=== PATIENT | male | born 1945 | race Caucasian/White ===

== ENCOUNTER 2018-03-28 08:23 | Emergency (ER) | payer MEDICARE, OTHER, SELFPAY ==
[2018-03-28 08:24] VITALS: BP 138/95; PULSE 116; RESP 15; TEMP 36.7; O2SAT 99; BMI 28.8
[2018-03-28 08:31] LABS: Bedside Glucose 392 mg/dL (70-110)
--- NOTE | 2018-03-28 08:35 | EKG12_ITS ---
Test Reason : CP Blood Pressure : / mmHG Vent. Rate : 116 BPM Atrial Rate : 116 BPM P-R Int : 162 ms QRS Dur : 086 ms QT Int : 342 ms P-R-T Axes : 074 -31 063 degrees QTc Int : 475 ms Sinus tachycardia with Premature atrial complexes Left axis deviation Abnormal ECG Confirmed by MYA GOOD, AIRAM ([id number]), production editor OMAR PAUL ([id number]) on 03/30/2018 9:24:47 AM Referred By: Confirmed By:AIRAM ROQUE MD
--- NOTE | 2018-03-28 08:35 | RAD_ITS ---
STUDY: X-RAY CHEST REASON FOR EXAM: Male, 72 years old. Several day history of chest pain. TECHNIQUE: Single AP portable view of the chest. COMPARISON: Comparison is made with prior study dated July 26, 2014. FINDINGS: EKG electrodes are seen. Hyperinflation. Scattered calcified granulomas. No acute abnormality is seen. There is no demonstrated pleural abnormality. Normal size heart. Calcified hilar lymph nodes. Normal visualized pulmonary arteries. Normal visualized aortic arch and descending thoracic aorta. There are mild degenerative changes of the visualized thoracic spine. Healed right rib fractures. There is no demonstrated abnormality of the visualized soft tissue structures of the upper abdomen. RAD/Chest 1 View (Portable) IMPRESSION: Hyperinflation. No acute abnormality is seen. Electronically Signed: Andres Angela MD at 8:51 EDT Tel [phone], Service support ,
[2018-03-28] MEDS: 0.9% Normal Saline 1,000 ML 150 ML IV (08:38)
[2018-03-28 08:41] LABS: Absolute Lymphocyte Count 0.75 X10^3/ul (0.83-4.51); Absolute Neutrophil Count 8.6 X10^3/uL (2.0-7.7); Basophil# 0.04 X10^3/uL; Basophil% 0.4 % (0-1); Eosinophil# 0.08 X10^3/uL; Eosinophils% 0.8 % (0-5); Hematocrit 41.4 % (40-54); Hemoglobin 13.2 g/dl (13.0-16.5); Lymphocyte # 0.75 X10^3/ul (4.0); Lymphocyte % 7.6 % (19-41); Mean Corp Hgb Conc 31.9 g/gl (32-36); Mean Corpuscular Hgb 29.8 pg (27.0-32.0); Mean Corpuscular Volume 93.5 fL (80-94); Monocyte# 0.46 X10^3/uL; Monocyte% 4.6 % (0-10); Neutrophil # 8.57 X10^3/uL (2.7-7.7); Neutrophil % 86.5 % (47-70); Platelet Count 187 K/mm3 (150-450); RBC Distribution Width CV 13.2 % (11.6-14.6); Red Blood Count 4.43 M/mm3 (4.6-6.2); White Blood Count 9.9 K/mm3 (4.4-11.0)
[2018-03-28 08:42] LABS: POSITIVE COUNT NO; POSITIVE DIFFERENTIAL NO; POSITIVE MORPHOLOGY NO
[2018-03-28 08:52] VITALS: O2SAT 100
--- NOTE | 2018-03-28 08:54 | ED.DCSUM_ITS ---
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 He reports he has chest pain that awaken him from sleep at 6:00 this morning. He had last approximately 2 hours. It was a substernal pressure without radiation. 10 out of 10 at worst and is pain-free currently. It was worsened by laying on his chest and relieved by nothing including 2 doses of nitroglycerin. Vomiting he reports that it was associated with nausea, but no vomiting. Also made him diaphoretic. No shortness of breath. Physical Examination: Vitals: Stable. Afebrile. General: Well-nourished and well-developed. Head: Normocephalic atraumatic. Neck: Supple, no lymphadenopathy. No JVD. Nontender. Cardiovascular: Tachycardic regular rhythm. No murmurs. Respiratory: No respiratory distress. Clear to auscultation bilaterally. Abdominal: Soft, nontender, nondistended, normal bowel sounds. No guarding, rebound, or peritoneal signs. Back: Nontender. Extremities: Nontender, no edema. Skin: Normal color, no rash. Neurologic: Alert and oriented ?3. Cranial nerves II through XII are intact. Normal strength and sensation. Psych: Normal affect. Test Results: EKG is sinus tach at [address]pecific [address] changes. The rate is essentially the only change from July 2014. CBC is marked for segment neutrophils 87 lymphocytes 8. Chem-7 is more for BUN 21, creatinine 1.3 , glucose 377. Troponin is negative. TSH is normal. Chest x-ray shows chronic changes. Emergency Department Course and Treatment: Patient was given aspirin p.o. Is given dose of labetalol IV. He is resting comfortably and has been pain-free while here. Patient has an insulin pump and has bolused himself and has treated his sugar appropriately. He does not want us to address this. Treatment Plan: Patient feels well and would like to go home. He was discussed with Dr. Rai who will see him in 2 days for repeat exam. I did discuss the patient the need for a repeat EKG and 3 hour troponin. He does not want to do this. He does report that he has had this multiple times over the past 2 weeks. This is only occurring when he is sleeping. I discussed I discussed with him the possibility of reflux. He will be placed on Prilosec. Return to the emergency department for any worsening symptoms. Disposition: To home in improved and stable condition. Impression: 1. Atypical chest pain. 2. GIOVANNI score 4. This note was generated with [employer] dictation software. It may contain incorrect words, spelling, and punctuation that were not noted in review of the chart prior to signing ED Disposition - Plan for ED Patient: Chief Complaint: Chest Pain Instructions: ED Chest Pain Atypical Unkn Cause Prescriptions: Omeprazole [Prilosec] 20 mg PO DAILY #30 capsule Referrals: Sriram Rai MD [STAFF PHYSICIAN] - Keep Neida appointment
[2018-03-28 09:04] LABS: Anion Gap 13 (5-15); BUN 21 mg/dL (7-18); BUN/Creat Ratio 15.2 RATIO (10-20); Calcium,Total 9.1 mg/dL (8.5-10.1); Chloride 99 mmol/L (98-107); Creatinine, Serum 1.38 mg/dL (0.70-1.30); EST Glomerular Filtration Rate 54 mL/min (>60); Est Glom Filt Rate - Afr Amer 65 mL/min (>60); Estimated Creatinine Clearance 55.49 ml/min; Glucose 377 mg/dL (74-106); Sodium Level 138 mmol/L (136-145); Thyroid Stim Hormone (TSH) 1.26 uIU/mL (0.358-3.74)
[2018-03-28 09:50] VITALS: BP 141/81; PULSE 75; RESP 18; O2SAT 100
[2018-03-28 10:44] VITALS: BP 120/69; PULSE 73; RESP 21; O2SAT 99
[2018-03-28 10:56] VITALS: BP 120/69; PULSE 72; RESP 18; O2SAT 99
== END 2018-03-28 10:56 | disposition home or self-care (01) ==
PROVIDERS: Emergency Provider Emergency Medicine; Family Provider Internal Medicine; PCP Internal Medicine
DX: R07.89 Other chest pain (principal); R11.0 Nausea; E11.9 Type 2 diabetes mellitus without complications; I10 Essential (primary) hypertension; E78.00 Pure hypercholesterolemia, unspecified; I48.91 Unspecified atrial fibrillation; Z86.73 Personal history of transient ischemic attack (TIA), and cerebral infarction without residual deficits; Z95.5 Presence of coronary angioplasty implant and graft; G60.0 Hereditary motor and sensory neuropathy
CPT/HCPCS: 71045; 80048; 82962; 84443; 84484; 85025; 93005; 96361; 96374; 99285; J7030; A4216

== ENCOUNTER 2018-05-31 16:49 | Emergency (ER) | payer MEDICARE, OTHER, SELFPAY ==
[2018-05-31 16:52] VITALS: BP 153/68; PULSE 112; RESP 16; TEMP 36.9; O2SAT 98; BMI 29.0
--- NOTE | 2018-05-31 17:21 | US_ITS ---
STUDY: VENOUS DOPPLER ULTRASOUND - RIGHT LOWER EXTREMITY REASON FOR EXAM: Male, 73 years old. Right lower leg and ankle swelling. TECHNIQUE: Ultrasound evaluation of the deep vein system to include luke-scale imaging and compression was performed. Luke-scale imaging and Doppler sonographic evaluation, including duplex spectral analysis and qualitative color flow sonography, was performed. COMPARISON: None. FINDINGS: Common Femoral Vein: Normal compression, spontaneity and augmentation. Normal color Doppler. Common Femoral Vein/Greater Saphenous Junction: Normal compression. Deep Femoral Vein: Normal compression. Femoral Proximal: Normal compression. Femoral Middle: Normal compression, spontaneity and augmentation. Normal color Doppler. Femoral Distal: Normal compression. Popliteal Vein: Normal compression, spontaneity and augmentation. Normal color Doppler. Posterior Tibial Vein: Normal compression. Peroneal Vein: Normal compression. There is no demonstrated deep venous thrombosis. US/Venous Duplex Imag/Limited/Uni IMPRESSION: No demonstrated DVT of the right lower extremity. Electronically Signed: Aaron Allen MD at 18:18 EST , Service support ,
[2018-05-31 17:40] LABS: Absolute Lymphocyte Count 1.06 X10^3/ul (0.83-4.51); Basophil# 0.05 X10^3/uL; Basophil% 1.1 % (0-1); Eosinophil# 0.06 X10^3/uL; Eosinophils% 1.3 % (0-5); Hematocrit 40.9 % (40-54); Hemoglobin 13.1 g/dl (13.0-16.5); Lymphocyte # 1.06 X10^3/ul (4.0); Lymphocyte % 23.2 % (19-41); Mean Corpuscular Hgb 29.7 pg (27.0-32.0); Mean Corpuscular Volume 92.7 fL (80-94); Mean Platelet Vol. 9.9 fl (6.2-12.0); Monocyte% 8.8 % (0-10); Neutrophil % 65.6 % (47-70); Platelet Count 206 K/mm3 (150-450); RBC Distribution Width SD 44.4 fl (35.1-43.9); Red Blood Count 4.41 M/mm3 (4.6-6.2); White Blood Count 4.6 K/mm3 (4.4-11.0)
[2018-05-31 17:46] LABS: POSITIVE COUNT NO; POSITIVE DIFFERENTIAL NO; POSITIVE MORPHOLOGY NO
--- NOTE | 2018-05-31 17:49 | ED.VISSUMM ---
- ER Visit Summary Date of Service: 05/31/18 Chief Complaint: Leg swelling History of Present Illness: The patient is a 73 M who presents the emergency room for the evaluation of right leg swelling. He was sent by his tray checker out of concern for right leg DVT. The patient has had problems with swelling of the right leg in the past. He states however this is much higher than it has been. He states that it is not a blood clot he most likely is having a flareup of his Charcot foot. The patient celebrated Thanksgiving on but states he really did not eat very much. He states that on Wednesday he noticed the swelling. He typically wears compression stockings at work. He worked the weekend. He notes discomfort in the ortez. He has not been in the [employer] boot recently. No recent surgeries or trauma or travel. No prior history of DVT. The patient denies any known kidney problems. He notes his blood sugars have been very high (in the 400s). Physical Examination: Afebrile vital signs are stable Gen: Well-nourished well-developed Head: Normocephalic atraumatic Eyes: Perrl EOMI ENT: TMs clear no rhinorrhea moist mucous membranes Neck: Supple no lymphadenopathy no JVD nontender CVS: Regular rate rhythm no murmurs normal S1-S2 Respiratory: No distress clear to auscultation bilaterally chest nontender Abdomen: Soft nontender nondistended normal bowel sounds no masses Back: Nontender Extremity: Right leg is swollen to the level of the knee. It is more swollen than the left however I can still see the sock line on the patient's left leg. I do not appreciate any cords. There is no erythema. The foot itself is not necessarily significantly swollen. Skin: Normal color no rash Neuro: alert orientated ?3 CN II-XII intact normal strength sensation reflexes gait cerebellar Psych: Normal affect normal mood Test Results: Basic blood work is normal. Duplex ultrasound is negative. Emergency Department Course and Treatment: The patient has no evidence of DVT. He has normal renal function. I think this is most likely lymphedema. Based upon prior recurrences of leg swelling I did say over time this has resulted in damage to the venous system. We will place him on Lasix. I will encourage compression stockings. He should follow-up with his doctors. Impression: 1. Right leg swelling 2. Lymphedema This note was generated with [employer] dictation software. It may contain incorrect words, spelling, and punctuation that were not noted in review of the chart prior to signing ED Disposition - Plan for ED Patient: Disposition: Home or Assisted Living Chief Complaint: Lower Extremity Injury Instructions: ED Lymphedema Prescriptions: Furosemide [Lasix] 40 mg PO DAILY #5 tab Referrals: Ghislaine Marshall [STAFF PHYSICIAN] - 5-7 Days
[2018-05-31 17:55] LABS: AST(SGOT) 20 U/L (15-37); Alanine Aminotransfer ALT/SGPT 28 U/L (16-61); Albumin, Serum 3.4 g/dL (3.2-5.0); Alkaline Phosphatase 167 U/L (45-117); Anion Gap 5 (5-15); BUN 16 mg/dL (7-18); BUN/Creat Ratio 12.7 RATIO (10-20); Calcium,Total 8.6 mg/dL (8.5-10.1); Chloride 103 mmol/L (98-107); Creatinine, Serum 1.26 mg/dL (0.70-1.30); EST Glomerular Filtration Rate 60 mL/min (>60); Est Glom Filt Rate - Afr Amer 72 mL/min (>60); Estimated Creatinine Clearance 59.89 ml/min; Globulin 3.4 g/dL (2.2-4.2); Glucose 253 mg/dL (74-106); Potassium 3.7 mmol/L (3.5-5.1); Protein, Total 6.8 g/dL (6.4-8.2); Sodium Level 138 mmol/L (136-145)
--- NOTE | 2018-05-31 18:45 | RAD_ITS ---
STUDY: X-RAY - RIGHT FOOT CLINICAL: Male, 73 years old. Right foot pain and swelling, arthritis. TECHNIQUE: 3 view(s) of the foot. COMPARISON: None. FINDINGS: There is heterogeneous density and prominent, periarticular spurring at the talonavicular, naviculocuneiform, and 2-5 tarsometatarsal articulations, the latter more prominent laterally. There is small enthesophyte involving the posterior superior calcaneus at the site of insertion of the Achilles tendon. There is a plantar calcaneal spur. Normal visualized subtalar articulation, and borderline narrowing of the calcaneocuboid joint space. Normal first metatarsal. Periarticular cortical irregularity also seen at the bases of the 2-5 metatarsals. There is some deformity and subarticular sclerosis at the head of the third metacarpal Normal metatarsophalangeal joint of the great toe. Normal tibial and fibular sesamoid bones. There is degenerative arthrosis and valgus deviation of the interphalangeal joint of the great toe. Normal phalanges of the great toe. Normal second metatarsophalangeal joint. There are degenerative changes of varying degrees involving the third through fifth metatarsophalangeal joints. There is degenerative joint space narrowing of varying degrees at the interphalangeal joints of the lesser toes. Joint space narrowing most severe at the second proximal interphalangeal joint. There is deformity of the mid to distal second proximal phalanx that may reflect old healed fracture. Otherwise, normal phalanges of the lesser toes. Borderline anterior soft tissue swelling of the mid and forefoot. Small linear metal foreign body seen in the plantar soft tissues near the base of the third proximal phalanx. There is no demonstrated acute fracture. RAD/Foot min 3 Views IMPRESSION: 1. Multifocal degenerative changes of the right foot, as described, most severe at the metatarsal tarsal and 2-5 tarsometatarsal articulations. 2. Small linear metal foreign body in the plantar soft tissues at the base of the third toe. 3. No demonstrated acute fracture. Electronically Signed: Aaron Allen MD at 19:26 EST , Service support ,
[2018-05-31 19:45] VITALS: BP 172/85; PULSE 107; RESP 18; O2SAT 97
--- OUTSIDE RECORDS SUMMARY | 2018-07-27 09:33 | XMS RPT_ITS ---
:1945 Author Organization [place] Care Team Providers Name Role Phone DANITA BALDWIN B Attending Unavailable NICOLASA, DANITA B Primary Care Unavailable NICOLASA, DANITA B Attending Unavailable NICOLASA, DANITA B Primary Care Unavailable NICOLASA, DANITA B Admitting Unavailable NICOLASA, DANITA B Attending Unavailable NICOLASA, DANITA B Primary Care Unavailable NICOLASA, DANITA B Admitting Unavailable NICOLASA, DANITA B Admitting Unavailable NICOLASA, DANITA B Attending Unavailable NICOLASA, DANITA B Primary Care Unavailable NICOLASA, DANITA B Attending Unavailable NICOLASA, DANITA B Primary Care Unavailable NICOLASA, DANITA B Admitting Unavailable NICOLASA, DANITA B Attending Unavailable NICOLASA, DANITA B Primary Care Unavailable NICOLASA, DANITA B Admitting Unavailable NICOLASA, DANITA B Attending Unavailable NICOLASA, DANITA B Primary Care Unavailable NICOLASA, DANITA B Attending Unavailable NICOLASA, DANITA B Primary Care Unavailable NICOLASA, DANITA B Admitting Unavailable Zenia Rivas Admitting Unavailable Zenia Rivas Attending Unavailable NICOLASA, DANITA B Primary Care Unavailable Den Martin Attending Unavailable DANITA BALDWIN Primary Care Unavailable DEN MARTIN Primary Care Unavailable Geovany Wagner Attending Unavailable Lisa Allison Attending Unavailable Lisa Allison Attending Unavailable Aldo Rairil Attending Unavailable VIANNEY MARTIND Referring Unavailable DEN MARTIN Primary Care Unavailable Jer Meehan Attending Unavailable PROBLEMS PROBLEMS DATE TYPE CONDITION / CODE ATTENDING STATUS SOURCE 04/13/2018 Unknown I48.0 - Paroxysmal Frdei, Sriram Active [facility] fibrillation / Hospital I48.0(ICD-10) Repository 04/13/2018 Unknown Z95.5 - Presence Fredi, [place] Active [facility] of coronary [facility] angioplasty Hospital implant and graft Repository / Z95.5(ICD-10) 04/13/2018 Unknown I10 - Essential Fredi, [place] Active [facility] (primary) [facility] hypertension / Hospital I10(ICD-10) Repository 04/13/2018 Unknown E78.5 - Fredi, [place] Active [facility] Hyperlipidemia, Community unspecified / Hospital E78.5(ICD-10) Repository 03/31/2018 Unknown R07.9 - Chest KristyJose leavittuel Active [facility] pain, unspecified Community / R07.9(ICD-10) Hospital Repository PROCEDURES PROCEDURES No Procedure Records FoundRESULTS RESULTS EMERGENCY DEPARTMENT Observed: 06/02/2018 Status: F Source: [employer] SUMMARY 8:16 AM [facility] REPOSITORY [facility] Medical Records Department [address] [place] [address] Emergency Department Summary 05/31/18 1749 MR#: [id number] Acct: [id number] Name: VICKY SAINI Rep #: [id number] : 1945 73 From: Jer Meehan DO PCP: DEN MARTIN Status: DEP ER - ER Visit Summary Date of Service: 05/31/18 Chief Complaint: Leg swelling History of Present Illness: The patient is a 73 M who presents the emergency room for the evaluation of right leg swelling. 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 The patient has had problems with swelling of the right leg in the past. He states however this is much higher than it has been. He states that it is not a blood clot he most likely is having a flareup of his Charcot foot. The patient celebrated Thanksgiving on but states he really did not eat very much. He states that on Wednesday he noticed the swelling. He typically wears compression stockings at work. He worked the weekend. He notes discomfort in the ortez. He has not been in the St[employer] boot recently. No recent surgeries or trauma or travel. No prior history of DVT. The patient denies any known kidney problems. He notes his blood sugars have been very high (in the 400s). Physical Examination: Afebrile vital signs are stable Gen: Well-nourished well-developed Head: Normocephalic atraumatic Eyes: Perrl EOMI ENT: TMs clear no rhinorrhea moist mucous membranes Neck: Supple no lymphadenopathy no JVD nontender CVS: Regular rate rhythm no murmurs normal S1-S2 Respiratory: No distress clear to auscultation bilaterally chest nontender Abdomen: Soft nontender nondistended normal bowel sounds no masses Back: Nontender Extremity: Right leg is swollen to the level of the knee. It is more swollen than the left however I can still see the sock line on the patient's left leg. I do not appreciate any cords. There is no erythema. The foot itself is not necessarily significantly swollen. Skin: Normal color no rash Neuro: alert orientated 3 CN II-XII intact normal strength sensation reflexes gait cerebellar Psych: Normal affect normal mood Test Results: Basic blood work is normal. Duplex ultrasound is negative. Emergency Department Course and Treatment: The patient has no evidence of DVT. He has normal renal function. I think this is most likely lymphedema. Based upon prior recurrences of leg swelling I did say over time this has resulted in damage to the venous system. We will place him on Lasix. I will encourage compression stockings. He should follow-up with his doctors. Impression: 1. Right leg swelling 2. Lymphedema This note was generated with [employer] dictation software. It may contain incorrect words, spelling, and punctuation that were not noted in review of the chart prior to signing ED Disposition - Plan for ED Patient: Disposition: Home or Assisted Living Chief Complaint: Lower Extremity Injury Instructions: ED Lymphedema Prescriptions: Furosemide [Lasix] 40 mg PO DAILY #5 tab Referrals: Ghislaine Marshall [STAFF PHYSICIAN] - 5-7 Days What to do if you have Problems For any increased pain, shortness of breath, bleeding, nausea or vomiting, chest pain, or any unexpected problems, contact your Primary Care Provider. Call [facility] ([phone]) or report to the closest Emergency Room. Call 911 if necessary. 06/02/18 0816 <Electronically signed by Jer Meehan DO> Date Jer Meehan DO Cosigner Signature (If Indicated): Date CC: DEN MARTIN FOOT MIN 3 VIEWS Observed: 05/31/2018 Status: F Source: [employer] 6:37 PM [facility] REPOSITORY [facility] Imaging Services [address] [place] [address] Foot min 3 Views MR#: [id number] Acct: [id number] Name: VICKY SAINI Rep #: [id number] : 1945 M 73 From: Chad Allen MD PCP: DEN MARTIN Status: REG ER Study: Foot min 3 Views Date of Exam: 05/31/18 Exam# [id number] Ordering Dr: Jer Meehan DO STUDY: X-RAY - RIGHT FOOT CLINICAL: Male, 73 years old. Right foot pain and swelling, arthritis. TECHNIQUE: 3 view(s) of the foot. COMPARISON: None. FINDINGS: There is heterogeneous density and prominent, periarticular spurring at the talonavicular, naviculocuneiform, and 2-5 tarsometatarsal articulations, the latter more prominent laterally. There is small enthesophyte involving the posterior superior calcaneus at the site of insertion of the Achilles tendon. There is a plantar calcaneal spur. Normal visualized subtalar articulation, and borderline narrowing of the calcaneocuboid joint space. Normal first metatarsal. Periarticular cortical irregularity also seen at the bases of the 2-5 metatarsals. There is some deformity and subarticular sclerosis at the head of the third metacarpal Normal metatarsophalangeal joint of the great toe. Normal tibial and fibular sesamoid bones. There is degenerative arthrosis and valgus deviation of the interphalangeal joint of the great toe. Normal phalanges of the great toe. Normal second metatarsophalangeal joint. There are degenerative changes of varying degrees involving the third through fifth metatarsophalangeal joints. There is degenerative joint space narrowing of varying degrees at the interphalangeal joints of the lesser toes. Joint space narrowing most severe at the second proximal interphalangeal joint. There is deformity of the mid to distal second proximal phalanx that may reflect old healed fracture. Otherwise, normal phalanges of the lesser toes. Borderline anterior soft tissue swelling of the mid and forefoot. Small linear metal foreign body seen in the plantar soft tissues near the base of the third proximal phalanx. There is no demonstrated acute fracture. RAD/Foot min 3 Views IMPRESSION: 1. Multifocal degenerative changes of the right foot, as described, most severe at the metatarsal tarsal and 2-5 tarsometatarsal articulations. 2. Small linear metal foreign body in the plantar soft tissues at the base of the third toe. 3. No demonstrated acute fracture. Electronically Signed: Aaron Allen MD at 19:26 EST , Service support , CC: Jer MARTIN Railway Signal Electrician: Signed CBC W/DIFF, AUTOMATED Collected: 05/31/2018 Status: F Source: [facility] 5:26 PM [facility] REPOSITORY TYPE CODE TESTS RESULT OUT OF RANGE REFERENCE UNITS LAB L100.1000 4.4-11.0 K/mm3 Normal WBC 4.6 LAB L100.1200 4.6-6.2 M/mm3 Low RBC 4.41 LAB L100.1300 13.0-16.5 g/dl Normal HGB 13.1 LAB L100.1400 40-54 % Normal HCT 40.9 LAB L100.1500 80-94 fL Normal MCV 92.7 LAB L100.1600 27.0-32.0 pg Normal MCH 29.7 LAB L100.1700 32-36 g/gl Normal MCHC 32.0 LAB L100.1810 11.6-14.6 % Normal RDW CV 13.0 LAB L100.1820 35.1-43.9 fl High RDW SD 44.4 LAB L100.1900 150-450 K/mm3 Normal PLT 206 LAB L100.2000 6.2-12.0 fl Normal MPV 9.9 LAB L100.2100 47-70 % Normal NEUT% 65.6 LAB L100.2200 19-41 % Normal LY% 23.2 LAB L100.2300 0-10 % Normal MONO% 8.8 LAB L100.2400 0-5 % Normal EO% 1.3 LAB L100.2500 0-1 % High BASO% 1.1 LAB L100.2550 0.0-0.9 % Normal IM GRAN % 0.000 Result Comment: IG% - Immature Granulocytes (promyelocytes, myelocytes and metamyelocytes) > 1% indicates that a LEFT SHIFT is Present. LAB L100.2620 2.0-7.7 X10 3/uL Normal Absolute Neut 3.0 LAB L100.2720 0.83-4.51 X10 3/ul Normal Absolute Lymph 1.06 Performed By: #### L100.0100 #### [facility] [address] [place], [address] COMPREHENSIVE METABOLIC Collected: 05/31/2018 Status: F Source: [facility] 5:26 PM [facility] REPOSITORY TYPE CODE TESTS RESULT OUT OF RANGE REFERENCE UNITS LAB L501.0100 74-106 mg/dL High GLU 253 Result Comment: Glucose result greater than or equal to 200 mg/dL suggests DIABETES MELLITUS per A.D.A. criteria. Please note revised GLUCOSE reference range effective 2017. LAB L501.1000 7-18 mg/dL Normal BUN 16 LAB L501.1100 0.70-1.30 mg/dL Normal CREAT,SERUM 1.26 Result Comment: The validity of the calculated GFR AND GFRAA in patients over 70 years has not been determined. Clinical correlation is essential. LAB L501.1110 >60 mL/min Normal EST GFR 60 Result Comment: Non- GFR Calc LAB L501.1115 >60 mL/min Normal EST GFR - AA 72 Result Comment: GFR Calc LAB L501.1255 ml/min Normal Estimated CRCL 59.89 LAB L501.1300 10-20 RATIO Normal BUN/CRE 12.7 LAB L501.1500 6.4-8. g/dL Normal 2 T PROT 6.8 LAB L501.1800 3.2-5. g/dL Normal 0 ALB 3.4 LAB L501.1950 2.2-4. g/dL Normal 2 GLOB 3.4 LAB L501.2000 0.9-2. RATIO Normal 4 A/G 1.0 LAB L501.2200 8.5-10 mg/dL Normal .1 CA 8.6 LAB L501.4100 15-37 U/L Normal AST 20 LAB L501.4305 45-117 U/L High ALK P 167 LAB L501.4405 16-61 U/L Normal ALT 28 LAB L501.4600 0.20-1 mg/dL Normal .00 T BILI 0.50 LAB L501.5300 136-14 mmol/L Normal 5 NA 138 LAB L501.5600 3.5-5. mmol/L Normal 1 K 3.7 LAB L501.5900 98-107 mmol/L Normal CL 103 LAB L501.6100 21.0-3 mmol/L Normal 2.0 CO2 30.0 LAB L501.6200 5-15 Normal GAP 5 Performed By: #### L500.4050 #### [facility] Laboratory [address] [place], [address] VENOUS DUPLEX Observed: 05/31/2018 Status: F Source: [employer] IMAG/LIMITED/UNI 5:21 PM [facility] REPOSITORY [facility] Imaging Services [address] [place] [address] Venous Duplex Imag/Limited/Uni MR#: [id number] Acct: [id number] Name: VICKY SAINI Rep #: [id number] : 1945 M 73 From: Chad Allen MD PCP: DEN MARTIN Status: REG Study: Venous Duplex Imag/Limited/Uni Date of Exam: 05/31/18 Exam# [id number] Ordering Dr: Jer Meehan DO STUDY: VENOUS DOPPLER ULTRASOUND - RIGHT LOWER EXTREMITY REASON FOR EXAM: Male, 73 years old. Right lower leg and ankle swelling. TECHNIQUE: Ultrasound evaluation of the deep vein system to include luke-scale imaging and compression was performed. Luke-scale imaging and Doppler sonographic evaluation, including duplex spectral analysis and qualitative color flow sonography, was performed. COMPARISON: None. FINDINGS: Common Femoral Vein: Normal compression, spontaneity and augmentation. Normal color Doppler. Common Femoral Vein/Greater Saphenous Junction: Normal compression. Deep Femoral Vein: Normal compression. Femoral Proximal: Normal compression. Femoral Middle: Normal compression, spontaneity and augmentation. Normal color Doppler. Femoral Distal: Normal compression. Popliteal Vein: Normal compression, spontaneity and augmentation. Normal color Doppler. Posterior Tibial Vein: Normal compression. Peroneal Vein: Normal compression. There is no demonstrated deep venous thrombosis. US/Venous Duplex Imag/Limited/Uni IMPRESSION: No demonstrated DVT of the right lower extremity. Electronically Signed: Aaron Allen MD at 18:18 EST , Service support , CC: Jer Meehan DO; DEN MARTIN Railway Signal Electrician: Signed CARDIOLOGY VISIT Observed: 04/13/2018 Status: F Source: [employer] REPORT 9:31 AM [facility] REPOSITORY [facility] [address] [place] [address] OFFICE VISIT Date of Service: 04/13/18 MR#: [id number] Acct: [id number] Name: VICKY SAINI Rep #: [id number] : 1945 Provider: Sriram Rai MD Age/Sex: 72/M Location: [facility] Status: Signed [facility] Chief Complaint: Initial visit Details: VICKY SAINI, is a 72 M who presents to the office today for an initial visit. He is a gentleman with a history of coronary artery disease status post previous angioplasty and stenting in 2012. He also has a history of paroxysmal atrial fibrillation hypertension and hyperlipidemia. He had been doing well but presented to the emergency room in [place] a few weeks ago with what appeared to be atypical chest pain. An electrocardiogram was done did not demonstrate any abnormalities and cardiac enzymes were also normal. He has had no further chest pain or shortness of breath or paroxysmal nocturnal dyspnea or pedal edema. He has been compliant with all his medications. He had some concern about the high dose of the beta-sarah that he was taking. His physical exam today demonstrates clear lung rosen regular rate and rhythm and no pedal edema. His blood pressure appears to be under good control. His electrocardiogram was reviewed from the emergency room visit and it does confirm normal sinus rhythm with no acute changes. Intake Vital Signs04/13/18 Height 6 ft 1 in 04/13/18 Weight: 212 lb 04/13/18 Body Mass Index (BMI) 27.9 04/13/18 Blood Pressure 142/64 H 04/13/18 Respiratory Rate 16 04/13/18 Pulse Rate 74 Intake Visit Reasons: ER 9-[address] Rai Allergies No Known Allergies Allergy (Verified 04/13/18 08:25) Medications Aspirin [Aspirin, Baby] 81 mg PO DAILY@0800 05/14/13 [History Confirmed 04/13/18] Humalog 1 - 100 unit SQ PRN PRN 05/14/13 [History Confirmed 04/13/18] Metoprolol Tartrate [Lopressor (beta sarah)] 100 mg PO BID 05/14/13 [History Confirmed 04/13/18] Nitroglycerin [Nitrostat] 0.4 mg SUBLINGUAL Q5M PRN 05/14/13 [History Confirmed 04/13/18] Clopidogrel Bisulfate [Plavix] 75 mg PO DAILY 01/15/15 [History Confirmed 04/13/18] atorvastatin 80 mg tablet 80 mg PO QHS tab 04/13/18 [History Confirmed 04/13/18] hydrochlorothiazide 25 mg tablet 25 mg PO DAILY 04/13/18 [History Confirmed 04/13/18] lisinopril 10 mg tablet 10 mg PO DAILY 04/13/18 [History Confirmed 04/13/18] PFSH Medical History Essential (primary) hypertension (Chronic) Paroxysmal atrial fibrillation (Chronic) Hyperlipidemia (Chronic) Atherosclerosis of coronary artery of [place] heart with angina pectoris (Chronic) CVA (cerebral vascular accident) (Chronic 2014) Type 2 diabetes mellitus (Chronic) Surgical History History of coronary artery stent placement (Resolved 2011) Family History Father Seizures Social History Smoking Status: Former smoker ROS Const Const: Negative for fatigue, weakness, difficulty sleeping, frequent falls, excessive sweating or headache(s) Eyes Eyes: Negative for loss of peripheral vision, transient loss of vision, blurry vision, tunnel vision or double vision ENT ENT: Negative for headache(s), dizziness, Nosebleed/epistaxis or balance problems Cardio Chest Pain: No Palpitations: No Edema: None Muscle aches with walking: None Resp Respiratory: Negative for SOB with activity, SOB at rest, SOB orthopnea\SOB lying down, paroxysmal nocturnal dyspnea or Cough GI GI: Negative nausea, heartburn, black,tarry stools or vomiting : Negative for hematuria Musc Musc: Negative for balance problems, muscle aches/ myalgia, muscle weakness or joint pain Skin Skin: Negative non-healing lesions, unusual bruising or rash Neuro Neuro: Negative for weakness, frequent falls, headache(s), blurry vision, double vision, dizziness, lightheadedness, orthostatic symptoms, near syncope, syncope or lack of coordination Man Hematologic/Lymphatic: Negative for easy bruising or easy bleeding Endo Endo: Negative for fatigue, excessive sweating or increased thirst/drinking Psych Psych: Negative for anxiety or depression Allergy Allergy/Immunology: Negative for hives, Negative for rash Cardiology Exam Const Appearance: cooperative, healthy appearing, well developed, well groomed and no acute distress Nutritional Appearance: well nourished and average body habitus Orientation: alert, awake and oriented x3 Head Head: normal to inspection, normocephalic and atraumatic Ears: hearing grossly normal bilaterally and external ears normal Nose: external nose normal, nasal mucous membranes and turbinates normal, nares normal, septum normal, no nasal discharge Face and Sinus: face symmetric Mouth: oral mucosae normal, tongue normal, oropharynx normal and moist mucous membranes Teeth and gingiva: dentition normal Throat: posterior oropharynx normal, tonsils normal and uvula midline Eyes General: appearance normal, both eyes and all related structures Eyelids: eyelids normal Conjunctivae: conjunctivae normal Pupils: PERRL, normal by confrontation and accommodation normal EOM: EOM intact bilaterally Neck Neck: normal visual inspection, trachea midline and no JVD JVD: +5 Carotids: normal carotid upstroke and bounding pulses Chest Chest inspection: normal inspection of the chest, symmetric chest movement and normal respiratory effort Auscultation: Bilateral: Clear to Auscultation Cardio Palpation: normal PMI Rate: regular rate Rhythm: regular rhythm Heart sounds: S1 normal, S2 normal and normal, physiologic split S2; negative rub, gallop or murmur GI GI: normal to inspection, soft, no hepatosplenomegaly and bowel sounds present Neuro General: alert, awake, oriented x3, no focal sensory deficit, gait normal and moves all extremities Skin Skin: no rashes or lesions noted Extremities Pulses: Normal: Right Femoral Pulse, Left Femoral Pulse, Right Dorsalis Pedis Pulse, Left Dorsalis Pedis Pulse, Right Posterior Tibial Pulse, Left Posterior Tibial Pulse, Right Radial Pulse, Left Radial Pulse Lower Extremity Edema: None: Bilateral Musculoskel Musculoskeletal: No joint tenderness Psych Psychological: normal affect Assessment AND Plan 1. Essential (primary) hypertension I10 Plan He does have a history of hypertension which appears to be well controlled on the current medical therapy he is on high dose beta-asrah, ABIMBOLA inhibitor as well as a diuretic. My recommendation is to continue it at the present time. An echocardiogram should be performed to assess his left ventricular function and also look for any wall motion abnormalities. 2. Paroxysmal atrial fibrillation I48.0 Plan He apparently has a previous history of paroxysmal atrial fibrillation. It does not appear that he has had any recent episodes of the above. No changes will be made with regard to the above. Orders Orders: 3. History of coronary artery stent placement Z95.5 At [place] Plan He does have a history of previous coronary artery disease and stenting. This was in 2013. He is not had any angina he is also not had any recent stress test my recommendation would be to obtain a pharmacologic myocardial perfusion stress test and depending on the findings further recommendations will be made. At the present time he should stay on the aspirin and the clopidogrel. Orders Orders: 4. Hyperlipidemia E78.5 Plan He does have a history of hyperlipidemia on high intensity statin. His most recent lipid profile demonstrated total cholesterol 111, triglycerides of 78, HDL of 49 and LDL 46. The above numbers are excellent and no changes will be made. Thank you for allowing me to participate in his care. 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) Coding Level of Care Code Off vis,new,level 4 Diagnoses Essential (primary) hypertension I10 Paroxysmal atrial fibrillation I48.0 History of coronary artery stent placement Z95.5 Hyperlipidemia E78.5 Coding Level of Care Code Off vis,new,level 4 Diagnoses Essential (primary) hypertension I10 Paroxysmal atrial fibrillation I48.0 History of coronary artery stent placement Z95.5 Hyperlipidemia E78.5 04/13/18 0931 <Electronically signed by Sriram Rai MD> Date Sriram Rai MD Cosigner Signature: Date (if applicable) CC: DEN MARTIN 12 LEAD ELECTROCARDIOGRAM Observed: 03/30/2018 Status: F Source: [facility] 9:25 AM [facility] REPOSITORY [facility] Cardiovascular Services [address] [place] [address] 12 Lead EKG 03/28/18 0826 MR#: [id number] Acct: [id number] Name: VICKY SAINI Rep #: [id number] : 1945 72 From: Sriram Rai MD Attending Dr: Status: DEP ER Ordering Dr: Geovany Wagner MD Date: 03/28/18 Location: ED Sex: M C Admitted: Test Reason : CP Blood Pressure : / mmHG Vent. Rate : 116 BPM Atrial Rate : 116 BPM P-R Int : 162 ms QRS Dur : 086 ms QT Int : 342 ms P-R-T Axes : 074 -31 063 degrees QTc Int : 475 ms Sinus tachycardia with Premature atrial complexes Left axis deviation Abnormal ECG Confirmed by SRIRAM RAI MD ([id number]), book or script editor OMAR PAUL ([id number]) on 03/30/2018 9:24:47 AM Referred By: Confirmed By:SRIRAM RAI MD 03/30/18923 Date Sriram Rai MD CC: DEN MARTIN; Geovany Wagner MD Signed EMERGENCY DEPARTMENT Observed: 03/28/2018 Status: F Source: [employer] SUMMARY 5:26 PM [facility] REPOSITORY [facility] Medical Records Department [address] [place] [address] Emergency Department Summary 03/28/18 0850 MR#: [id number] Acct: [id number] Name: VICKY SAINI Rep #: [id number] : 1945 72 From: Geovany Wagner MD PCP: DEN MARTIN Status: DEP ER 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 He reports he has chest pain that awaken him from sleep at 6:00 this morning. He had last approximately 2 hours. It was a substernal pressure without radiation. 10 out of 10 at worst and is pain-free currently. It was worsened by laying on his chest and relieved by nothing including 2 doses of nitroglycerin. Vomiting he reports that it was associated with nausea, but no vomiting. Also made him diaphoretic. No shortness of breath. Physical Examination: Vitals: Stable. Afebrile. General: Well-nourished and well-developed. Head: Normocephalic atraumatic. Neck: Supple, no lymphadenopathy. No JVD. Nontender. Cardiovascular: Tachycardic regular rhythm. No murmurs. Respiratory: No respiratory distress. Clear to auscultation bilaterally. Abdominal: Soft, nontender, nondistended, normal bowel sounds. No guarding, rebound, or peritoneal signs. Back: Nontender. Extremities: Nontender, no edema. Skin: Normal color, no rash. Neurologic: Alert and oriented 3. Cranial nerves II through XII are intact. Normal strength and sensation. Psych: Normal affect. Test Results: EKG is sinus tach at [address] nonspecific [address] changes. The rate is essentially the only change from July 2014. CBC is marked for segment neutrophils 87 lymphocytes 8. Chem-7 is more for BUN 21, creatinine 1.3, glucose 377. Troponin is negative. TSH is normal. Chest x-ray shows chronic changes. Emergency Department Course and Treatment: Patient was given aspirin p.o. Is given dose of labetalol IV. He is resting comfortably and has been pain- free while here. Patient has an insulin pump and has bolused himself and has treated his sugar appropriately. He does not want us to address this. Treatment Plan: Patient feels well and would like to go home. He was discussed with Dr. Rai who will see him in 2 days for repeat exam. I did discuss the patient the need for a repeat EKG and 3 hour troponin. He does not want to do this. He does report that he has had this multiple times over the past 2 weeks. This is only occurring when he is sleeping. I discussed I discussed with him the possibility of reflux. He will be placed on Prilosec. Return to the emergency department for any worsening symptoms. Disposition: To home in improved and stable condition. Impression: 1. Atypical chest pain. 2. GIOVANNI score 4. This note was generated with [employer] dictation software. It may contain incorrect words, spelling, and punctuation that were not noted in review of the chart prior to signing ED Disposition - Plan for ED Patient: Chief Complaint: Chest Pain Instructions: ED Chest Pain Atypical Unkn Cause Prescriptions: Omeprazole [Prilosec] 20 mg PO DAILY #30 capsule Referrals: Sriram Rai MD [STAFF PHYSICIAN] - Keep Neida appointment What to do if you have Problems For any increased pain, shortness of breath, bleeding, nausea or vomiting, chest pain, or any unexpected problems, contact your Primary Care Provider. Call [facility] ([phone]) or report to the closest Emergency Room. Call 911 if necessary. 03/28/18 1726 <Electronically signed by Geovany Wagner MD> Date Geovany Wagner MD Cosigner Signature (If Indicated): Date CC: DEN MARTIN CHEST 1 VIEW Observed: 03/28/2018 Status: F Source: [employer] (PORTABLE) 8:36 AM [facility] REPOSITORY [facility] Imaging Services [address] [place] [address] Chest 1 View (Portable) MR#: [id number] Acct: [id number] Name: VICKY SAINI Rep #: [id number] : 1945 72 From: Andres Angela MD PCP: DEN MARTIN Status: REG ER Study: Chest 1 View (Portable) Date of Exam: 03/28/18 Exam# [id number] Ordering Dr: Geovany Wagner MD STUDY: X-RAY CHEST REASON FOR EXAM: Male, 72 years old. Several day history of chest pain. TECHNIQUE: Single AP portable view of the chest. COMPARISON: Comparison is made with prior study dated July 26, 2014. FINDINGS: EKG electrodes are seen. Hyperinflation. Scattered calcified granulomas. No acute abnormality is seen. There is no demonstrated pleural abnormality. Normal size heart. Calcified hilar lymph nodes. Normal visualized pulmonary arteries. Normal visualized aortic arch and descending thoracic aorta. There are mild degenerative changes of the visualized thoracic spine. Healed right rib fractures. There is no demonstrated abnormality of the visualized soft tissue structures of the upper abdomen. RAD/Chest 1 View (Portable) IMPRESSION: Hyperinflation. No acute abnormality is seen. 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 CBC W/DIFF, AUTOMATED Collected: 03/28/2018 Status: F Source: MAYDA 8:33 AM [facility] REPOSITORY TYPE CODE TESTS RESULT OUT OF RANGE REFERENCE UNITS LAB L100.1000 4.4-11.0 K/mm3 Normal WBC 9.9 LAB L100.1200 4.6-6.2 M/mm3 Low RBC 4.43 LAB L100.1300 13.0-16.5 g/dl Normal HGB 13.2 LAB L100.1400 40-54 % Normal HCT 41.4 LAB L100.1500 80-94 fL Normal MCV 93.5 LAB L100.1600 27.0-32.0 pg Normal MCH 29.8 LAB L100.1700 32-36 g/gl Low MCHC 31.9 LAB L100.1810 11.6-14.6 % Normal RDW CV 13.2 LAB L100.1820 35.1-43.9 fl High RDW SD 45.0 LAB L100.1900 150-450 K/mm3 Normal PLT 187 LAB L100.2000 6.2-12.0 fl Normal MPV 10.0 LAB L100.2100 47-70 % High NEUT% 86.5 LAB L100.2200 19-41 % Low LY% 7.6 LAB L100.2300 0-10 % Normal MONO% 4.6 LAB L100.2400 0-5 % Normal EO% 0.8 LAB L100.2500 0-1 % Normal BASO% 0.4 LAB L100.2550 0.0-0.9 % Normal IM GRAN % 0.100 Result Comment: IG% - Immature Granulocytes (promyelocytes, myelocytes and metamyelocytes) > 1% indicates that a LEFT SHIFT is Present. LAB L100.2620 2.0-7.7 X10 3/uL High Absolute Neut 8.6 LAB L100.2720 0.83-4.51 X10 3/ul Low Absolute Lymph 0.75 Performed By: #### L100.0100 #### [facility] Laboratory [address] [place], [address] BASIC METABOLIC Collected: 03/28/2018 Status: F Source: [employer] PROFILE (BMP) 8:33 AM [facility] REPOSITORY TYPE CODE TESTS RESULT OUT OF RANGE REFERENCE UNITS LAB L501.0100 74-106 mg/dL High GLU 377 Result Comment: Glucose result greater than or equal to 200 mg/dL suggests DIABETES MELLITUS per A.D.A. criteria. Please note revised GLUCOSE reference range effective 2017. LAB L501.1000 7-18 mg/dL High BUN 21 LAB L501.1100 0.70-1.30 mg/dL High CREAT,SERUM 1.38 Result Comment: The validity of the calculated GFR AND GFRAA in patients over 70 years has not been determined. Clinical correlation is essential. LAB L501.1110 >60 mL/min Low EST GFR 54 Result Comment: Non- GFR Calc LAB L501.1115 >60 mL/min Normal EST GFR - AA 65 Result Comment: GFR Calc LAB L501.1255 ml/min Normal Estimated CRCL 55.49 LAB L501.1300 10-20 RATIO Normal BUN/CRE 15.2 LAB L501.2200 8.5-10 mg/dL Normal .1 CA 9.1 LAB L501.5300 136-14 mmol/L Normal 5 NA 138 LAB L501.5600 3.5-5. mmol/L Normal 1 K 4.0 LAB L501.5900 98-107 mmol/L Normal CL 99 LAB L501.6100 21.0-3 mmol/L Normal 2.0 CO2 26.0 LAB L501.6200 5-15 Normal GAP 13 Performed By: #### L500.2500, L501.4010, L501.9520 #### [facility] Laboratory [address] [place], [address] TROPONIN-I Collected: 03/28/2018 Status: F Source: MAYDA 8:33 AM [facility] REPOSITORY TYPE CODE TESTS RESULT OUT OF RANGE REFERENCE UNITS LAB L501.4010 <0.045 ng/mL Normal < 0.015 TROPONIN-I Result Comment: TROPONIN-I EXPECTED VALUES <0.045 Negative 0.045 - 0.590 Consistent with Cardiac Damage > OR = 0.600 Critical Value Not every elevated troponin is indicative of WA. These values should be used with clinical judgement in examining the patient's clinical picture for diagnosis. To establish a diagnosis of WA versus myocardial injury, there must be a demonstrated rise and/or fall in the troponin values, in addition to ischemic symptoms, EKG changes, new regional wall motion abnormality, and/or angiographical evidence. PLEASE NOTE: REFERENCE RANGES EDITED 17 Performed By: #### L500.2500, L501.4010, L501.9520 #### [facility] Laboratory [address] [place], [address] THYROID STIM HORMONE Collected: 03/28/2018 Status: F Source: MAYDA (TSH) 8:33 AM [facility] REPOSITORY TYPE CODE TESTS RESULT OUT OF RANGE REFERENCE UNITS LAB L501.9520 0.358-3.74 uIU/mL Normal TSH 1.26 Performed By: #### L500.2500, L501.4010, L501.9520 #### [facility] Laboratory [address] [place], [address] BEDSIDE GLUCOSE Collected: 03/28/2018 Status: F Source: MAYDA 8:28 AM [facility] REPOSITORY TYPE CODE TESTS RESULT OUT OF REFERENCE UNITS RANGE LAB L501.080 70-110 mg/dL High BEDSIDE GLU 392 Result Comment: MANAGEMENT OF PATIENT CARE PER NURSING PROTOCOL Performed By: #### L501.080 #### [facility] Laboratory Point of Care [address] [place] [address] CMP Collected: 11/23/2017 Status: F Source: RESTORATIONIST 7:37 AM [facility] REPOSITORY TYPE CODE TESTS RESULT OUT OF RANGE REFERENCE UNITS LAB 59073928(L 70-99 mg/dL OINC) High Glucose Lvl 362 LAB 89027904(L 8.4-10.2 mg/dL OINC) Calcium Normal Lvl 8.9 LAB 69100561(L 136-145 mEq/L OINC) Low Sodium Lvl 134 LAB 43113324(L 3.5-5.1 mEq/L OINC) Normal Potassium Lvl 4.2 LAB 25841956(L 98-107 mEq/L OINC) Low Chloride 97 LAB 17605322(L 24.0-30.0 mEq/L OINC) CO2 Normal 28.0 LAB 93088131(L 7-18 mg/dL OINC) High BUN 23 LAB 2739128(LO 0.6-1.3 mg/dL INC) Normal Creatinine 1.1 LAB 32073963(L 42-121 Int._Unit/ OINC) L Alk Phos Normal 110 LAB 57123214(L 0.2-1.0 mg/dL OINC) Bili Normal Total 0.7 LAB 29262405(L 3.2-5.0 G/DL OINC) Albumin Normal Lvl 3.8 LAB 79620382(L 6.4-8.3 G/DL OINC) Total Normal Protein 6.4 LAB 27038777(L 10-40 Int._Unit/ OINC) L ALT Normal 19 LAB 87733607(L 10-42 Int._Unit/ OINC) L AST Normal 21 LAB 53785916(L 5.4-30.0 ratio OINC) Normal BUN/Creat Ratio 20.9 LAB 94627100(L 2.0-4.0 G/DL OINC) Globulin Normal 2.6 LAB 34323976(L 1.1-1.9 ratio OINC) A/G Normal Ratio 1.5 Performed By: #### 5963421 #### [facility] [employer] [address] [place] [address] EGFR Collected: 11/23/2017 Status: F Source: RESTORATIONIST 7:37 AM [facility] REPOSITORY Order Comment: Order added by Discern Expert. TYPE CODE TESTS RESULT OUT OF RANGE REFERENCE UNITS LAB 82352068(LO mL/min/1.73 INC) m2 Normal eGFR >60 LAB 34092732(LO mL/min/1.73 INC) m2 Normal eGFR AA >60 Performed By: #### 85698439 #### [facility] [address] [place] [address] MICROALB/CREAT RATIO Collected: 11/23/2017 Status: F Source: RESTORATIONIST 7:37 AM [facility] REPOSITORY TYPE CODE TESTS RESULT OUT OF REFERENCE UNITS RANGE LAB 34074145(L 0.0-1.9 mg/dL OINC) Ur Normal Microalbumin 0.6 LAB 28683697(L 20.0-300.0 mg/dL OINC) Ur Creat Normal 63.0 LAB 21645698(L 0-30 ug/mg OINC) Microalb/Creat Normal 10 Performed By: #### [id number] #### [facility] [address] [place] [address] TSH Collected: 11/23/2017 Status: F Source: RESTORATIONIST 7:37 AM [facility] REPOSITORY TYPE CODE TESTS RESULT OUT OF RANGE REFERENCE UNITS LAB 62575682(LO 0.30-5.60 mIU/m INC) Normal TSH 1.88 Performed By: #### 4054219 #### [facility] [employer] [address] [place] [address] FREE T4 Collected: 11/23/2017 Status: F Source: RESTORATIONIST 7:37 AM [facility] REPOSITORY TYPE CODE TESTS RESULT OUT OF RANGE REFERENCE UNITS LAB 93190248(LO 0.58-1.64 ng/dL INC) Normal T4 Free 0.87 Performed By: #### 5267279 #### [facility] [employer] [address] [place] [address] HGBA1C Collected: 11/23/2017 Status: F Source: RESTORATIONIST 7:37 AM [facility] REPOSITORY TYPE CODE TESTS RESULT OUT OF REFERENCE UNITS RANGE LAB 925369572( 4.0-6.3 % LOINC) High Hemoglobin A1c 10.3 Performed By: #### [id number] #### [facility] Chemistry Manual Subsection [address] [place] [address] LAB MISCELLANEOUS Collected: 10/20/2017 Status: F Source: RESTORATIONIST 9:06 AM [facility] REPOSITORY TYPE CODE TESTS RESULT OUT OF RANGE REFERENCE UNITS LAB 86930565(LO INC) Normal Test Name C PEPTIDE LAB 73630981(LO INC) Normal Status See Ref Lab Report Performed By: #### [id number] #### [facility] Send Outs Subsection [address] [place] [address] LAB MISCELLANEOUS Collected: 10/20/2017 Status: F Source: RESTORATIONIST 9:06 AM [facility] REPOSITORY TYPE CODE TESTS RESULT OUT OF RANGE REFERENCE UNITS LAB 59024538(LO INC) Normal Test Name FASTING GLUCOSE LAB 25662447(LO INC) Normal Status See Glucose Fas Performed By: #### [id number] #### [facility] Send Outs Subsection [address] [place] [address] GLU FASTING Collected: 10/20/2017 Status: F Source: RESTORATIONIST 9:06 AM [facility] REPOSITORY TYPE CODE TESTS RESULT OUT OF REFERENCE UNITS RANGE LAB 40139884(LO 70-99 mg/dL INC) High Glucose 141 Fasting Performed By: #### 8534943 #### [facility] [address] [place] [address] CMP Collected: 09/30/2017 Status: F Source: RESTORATIONIST 8:25 AM [facility] REPOSITORY TYPE CODE TESTS RESULT OUT OF RANGE REFERENCE UNITS LAB 09454221(L 70-99 mg/dL OINC) High Glucose Lvl 244 LAB 14842376(L 7-18 mg/dL OINC) BUN Normal 15 LAB 3686145(LO 0.6-1.3 mg/dL INC) Normal Creatinine 1.0 LAB 99340539(L 8.4-10.2 mg/dL OINC) Calcium Normal Lvl 8.9 LAB 10858060(L 136-145 mEq/L OINC) Sodium Normal Lvl 136 LAB 53586753(L 3.5-5.1 mEq/L OINC) Normal Potassium Lvl 3.9 LAB 76654035(L 98-107 mEq/L OINC) Chloride Normal 100 LAB 33045048(L 24.0-30.0 mEq/L OINC) High CO2 30.2 LAB 91184547(L 42-121 Int._Unit/ OINC) L Alk Phos Normal 110 LAB 19184788(L 0.2-1.0 mg/dL OINC) Bili Normal Total 0.7 LAB 97922012(L 3.2-5.0 G/DL OINC) Albumin Normal Lvl 3.7 LAB 66516171(L 6.4-8.3 G/DL OINC) Total Normal Protein 6.4 LAB 48146924(L 10-40 Int._Unit/ OINC) L ALT Normal 27 LAB 23629002(L 10-42 Int._Unit/ OINC) L AST Normal 21 LAB 44982790(L 5.4-30.0 ratio OINC) Normal BUN/Creat Ratio 15.0 LAB 41736810(L 2.0-4.0 G/DL OINC) Globulin Normal 2.7 LAB 25801315(L 1.1-1.9 ratio OINC) A/G Normal Ratio 1.4 Performed By: #### 4287452 #### [facility] [facility] [place] [address] EGFR Collected: 09/30/2017 Status: F Source: RESTORATIONIST 8:25 [facility] REPOSITORY Order Comment: Order added by Discern Expert. TYPE CODE TESTS RESULT OUT OF RANGE REFERENCE UNITS LAB 99443476(LO mL/min/1.73 INC) m2 Normal eGFR >60 LAB 86706814(LO mL/min/1.73 INC) m2 Normal eGFR AA >60 Performed By: #### 11747155 #### [facility] [employer] [address] [place] [address] HGBA1C Collected: 09/30/2017 Status: F Source: RESTORATIONIST 8:25 [facility] REPOSITORY TYPE CODE TESTS RESULT OUT OF REFERENCE UNITS RANGE LAB 587829140( 4.0-6.3 % LOINC) High Hemoglobin A1c 10.8 Performed By: #### [id number] #### [facility] Chemistry Manual Subsection [facility] [place] [address] ALLERGIES ALLERGIES DATE TYPE / CODE NAME / CODE REACTION SEVERITY SOURCE 04/13/2018 Drug No Known Unknown [place] Allergy/416 Allergies/H699022 [facility] 450583(SNOM 388(RXNORM) [facility] ED CT) Repository Drug/923624 No Known [place] 003(SNOMED Medication [facility]) Allergies System Repository ENCOUNTERS ENCOUNTERS ADMIT/DISCHARGE ACCOUNT NUMBER ADMITTING ENCOUNTER LOCATION SOURCE CLASS 05/31/2018/05/31/20 [id number] Emergency [place] 18 [facility] ding:ED Repository 04/13/2018/04/13/20 [id number] Ambulatory BMSBuilding: [place] 18 [facility] Repository 04/12/2018 [id number] Ambulatory BMSBuilding: [place] [facility] Repository 03/28/2018 [id number] Ambulatory BMSBuilding: [place] [facility] Repository 03/28/2018/03/28/20 [id number] Emergency [place] 18 [facility] ding:ED Repository 03/08/2018/03/08/20 [id number] Ambulatory [address] ding:[facility] Repository IM 01/12/2018/01/13/[id number] ding:[facility] Repository IM 11/23/2017/11/24/19 [id number] Zenia Rivas [address] [facility] 11/01/2017/11/02/[id number] ding:[facility] Repository IMRoom: Room 3 10/20/2017/10/21/[id number] ding[facility] Repository 10/13/2017/10/14/[id number] ding:[facility] Repository IMRoom: Room 3 09/30/2017/10/01/[id number] ding[facility] Repository 09/28/2017/09/29/[id number] ding:[facility] Repository IMRoom: Room 3 09/13/2017/09/14/[id number] ding:[facility] Repository IM 07/29/2017/07/29/19 [id number] DAGMAR, [facility] 18 [facility] Internal [facility] ding:[facility] Repository IMRoom: Room 2 PAYERS PAYERS ENCOUNTER GUARANTOR PAYER SUBSCRIBER SOURCE 05/31/2018 VICKY [id number] Primary VICKY CLOUDBRITTNEYB: [place] [address] Insurance:MEDICARE [id number] [place] [address]Nee: Number: Repository [id number] (HP) Date:2018-05-31 05/31/2018 Secondary VICKY Steele MARCELINOB: [place] Insurance:AARPPolicy [id number] [facility] Number: [facility] [id number] Repository Date:6362-12-24NI [facility] [address], [place] [address]MT: 05/31/2018 Tertiary NOT GIVENUNK [place] Insurance:SELF PAY Community [facility] Number: Effective Repository Date:2018-05-31 04/13/2018 VICKY [id number] Primary VICKY Steele MARCELINOB: [place] [address] Insurance:MEDICARE [id number] [place] [address]Ixi: Number: Repository [id number] (HP) Date:2018-03-28 04/13/2018 Secondary VICKY Steele MARCELINOB: [place] Insurance:AARPPolicy [id number] Community Number: Hospital [id number] Repository Date:7957-31-61[address], [place] [address]OI: 04/13/2018 Tertiary NOT GIVENUNK [place] Insurance:SELF PAY [facility] Number: Effective Repository Date:2018-04-13 04/12/2018 VICKY [id number] Primary VICKY CLOUDBRITTNEYB: [place] [address] Insurance:MEDICARE [id number] [place] [address]Qyk: Number: Repository [id number] (HP) Date:2018-04-12 04/12/2018 Secondary VICKY CLOUDKARINADOB: [place] Insurance:AARPPolicy [id number] Community Number: Hospital [id number] Repository Date:9334-05-19[address], [place] [address]ZD: 04/12/2018 Tertiary NOT GIVENUNK [place] Insurance:SELF PAY Community [facility] Number: Effective Repository Date:2018-04-12 03/28/2018 IVCKY [id number] Primary VICKY R AUKARINADOB: [place] [address] Insurance:MEDICARE [id number] [address] [address]Xky: Number: Repository [id number] () Date:2018-03-28 03/28/2018 Secondary VICKY R AUKARINADOB: [place] Insurance:AARPPolicy [id number] Community Number: Hospital [id number] Repository Date:2193-36-19ZZ [facility] [address], [place] [address]XX: 03/28/2018 Tertiary NOT GIVENUNK [place] Insurance:SELF PAY Community [facility] Number: Effective Repository Date:2018-03-28 03/28/2018 VICKY [id number] Primary VICKY R AUKARINADOB: [place] [address] Insurance:MEDICARE [id number] [address] [address]Vdl: Number: Repository [id number] () Date:2018-03-28 03/28/2018 Secondary VICKY BENSONB: [place] Insurance:AARPPolicy [id number] Community Number: Hospital [id number] Repository Date:4891-76-37CI [address]LZVXUGY, [place] [address]FI: 03/28/2018 Tertiary NOT GIVENUNK [place] Insurance:SELF PAY Community [facility] Number: Effective Repository Date:2018-03-28 03/08/2018 VICKY BENSONB: Primary VICKY BENSONB: [place] [id number] Insurance:MedicarePol [id number] [facility] [place] icy Number: Effective [address], Date:2018-02-10 - [address] [place] [address], Repository [place] [id number] [place] [address]Bjx: Name:CD:[id number] [address] [address]Pil: 358[address]GADWUFNKPQ, [place] (HP)Tel: [phone]) [phone]: (800) (HP) (WP) [phone] (WP) 03/08/2018 Secondary VICKY BENSONB: [place] Insurance:AARPPolicy [id number] [facility] Number: Effective [address] [place] [address] Date:2018-02-10 - [address] [place] [address], Repository [id number] [place] Name:CD:[id number] [address] [address]Oxv: 625808DGFYPVT, [place] [address]IA: [phone]) (HP) 000-0000 (WP) 01/12/2018 VICKY PRESSLEY: Primary VICKY BENSONB: [place] [id number] Insurance:1500 [id number] [facility] [address] MEDICARE [address] System [place]: [facility] Repository [place] [id number]: Effective [place] [id number]: Date:2017-10-13 - (HP)Tel: [phone] (HP) (WP) Name:CD:[id number] O 000-0000 (WP) [address]RQZPXZLCB, [place] [address]ZY: 01/12/2018 Secondary VICKY PRESSLEY: [place] Insurance:1500 [id number] [facility] AARP/UHCPolicy [address] [place] [address] ROAD System Number: Effective [place], Repository Date:2017-10-13 - [place] [id number]: [id number] Name:CD:[id number] O (HP)Tel: 000) [address]LU[address]PPW, [place] 000-0000 (WP) [address]KF: 11/23/2017 VICKY PRESSLEY: Primary VICKY BENSONB: [place] [id number] Insurance:MedicarePol [id number] [facility] [place] icy Number: Effective [address] [place] [address] ROAD System [address] [place] [address], Date:2017-11-23 - [address] [place] [address], Repository [place] [id number] [facility]Ojz: Name:CD:[id number] [address] [address]Xhh: [id number], [place] (HP)Tel: [phone]: ([phone]) (HP) (WP) [phone] (WP) 11/23/2017 Secondary VICKY PRESSLEY: [place] Insurance:AARolicy [id number] [facility] Number: Effective [address] [place] [address] System Date:2017-11-23 - [address] [place] [address], Repository [id number] [place] Name:CD:[id number] [address] [address]Hpt: 678902[place], [place] [address]JM: (800) (HP) 000-0000 (WP) 11/01/2017 VICKY PRESSLEY: Primary VICKY PRESSLEY: [place] [id number] Insurance:[facility] [id number] [facility] [place] MEDICARE [address] [place] [address] ROAD System [address] [place] [address], PRIMARYPolicy Number: [facility], [place] [address]Vbx: Date:2017-11-0138562-59[address]Ffr: [id number] (HP)Tel: ([phone]) Name:CD:[id number] O (HP) (WP) [address] [address]PGHRGPOPF, 000-0000 (WP) [place] [address]DT: 11/01/2017 Secondary VICKY BENSONB: [place] Insurance:1500 [id number] [facility] AAR/[facility] [address] [facility] [address] System Number: Effective [address] [place] [address], Repository Date:2017-11-01 - [place] 5844-36-96Lprw [address]Gcd: Name:CD:[id number] [address]FDPQLOO, [place] (HP)Tel: 000) [phone]: (WP) [phone] 10/20/2017 VICKY PRESSLEY: Primary VICKY BENSONB: [place] [id number] Insurance:MedicarePol [id number] [facility] [place] icy Number: Effective 8 [facility] System [address] [place] [address], Date:2017-10-20 - [address] [place] [address], Repository [place] [id number] [facility]Uqf: Name:CD:[id number] [address] [address]Sss: [id number], [place] (HP)Tel: [phone]) [phone]: (800) (HP) (WP) [phone] (WP) 10/20/2017 Secondary VICKY PRESSLEY: [place] Insurance:AARPPolicy [id number] [facility] Number: Effective [address] [facility] System Date:2017-10-20 - [address] [place] [address], Repository [id number] [place] Name:CD:[id number] [address] [address]Imj: 432[address]VJJAYAT, [place] [address]DW: (800) (HP) 000-0000 (WP) 10/13/2017 VICKY BENSONB: Primary VICKY R MARCELINOB: [place] [id number] Insurance:1500 [id number] [facility] [address] MEDICARE [address] System [place] Number: [facility], Repository [place] [id number]: Effective [place] [id number]: Date:2017-10-13 - (HP)Tel: [phone]) [phone] (HP) (WP) Name:CD:[id number] O 000-0000 (WP) [address] [address]IQPHMUENF, [place] [address]QB: 10/13/2017 Secondary VICKY CLOUDBRITTNEYB: [place] Insurance:1500 [id number] [place] [address]/[facility] [address] [place] [address] Number: [facility] Date:2017-10-13 - [place] [id number]: [id number] Name:[id number] O (HP)Tel: (000) [address], [place] 000-0000 (WP) [address]KI: 09/30/2017 VICKY BENSONB: Primary VICKY R MARCELINOB: [employer]:MedicarePol [id number] [place] [address] icy Number: Effective [address] [place] [address], Date:2017-09-30 - [address] [place] [address], Repository [place] [id number]: [id number] [place] [id number]: Name:[id number] BOX (HP)Tel: [phone], [place] (HP) (WP) [phone]: (WP) [phone] 09/30/2017 Secondary VICKY BENSONB: [place] Insurance:AARPPolicy [id number] [facility] Number: Effective [address] [place] [address] Date:2017-09-30 - [facility] Rep[facility] [id number] [place] [id number]: Name:[id number], [place] (HP)Tel: [phone]: (WP) [phone] 09/28/2017 VICKY BENSONB: Primary VICKY R AUKARINADOB: [place] Insurance:[id number] [facility] [address] MED[address] System [place], PRIMARYPolicy Number: 65[facility] [place] [id number]: Effective [place] [id number]: Date:2017-09-28 - (HP)Tel: [phone] (HP) (WP) Name:[id number] O 000-0000 (WP) [address] [place] [id number]: 09/28/2017 Secondary VICKY Steele MARCELINOB: [place] Insurance:[id number] [facility] AARP/UHCPolicy [address] [place] [address] Number: Effective [facility], Rep[facility] Date:2017-09-28 - [place] [id number]: [id number] Name:[id number] O (HP)Tel: (000) [address]GCTWPKK, [place] 000-0000 (WP) [phone]: 09/13/2017 VICKY BENSONB: Primary VICKY Steele MARCELINOB: [place] Insurance:[id number] [facility] [address] MEDICARE [address] System [place] [place], Repository [place] [id number]: Effective [place] [id number]: Date:2017-06-14 (HP)Tel: [phone] (HP) (WP) Name:[id number] O 000-0000 (WP) [address] [address] [address]AF: 09/13/2017 Secondary VICKY BENOSNB: [place] Insurance:1500 [id number] [facility]/[address] Number: Effective [place], Repository Date:2017-06-14 - [place] [id number]: [id number] Name:[id number] O ()Tel: (000) [address], [place] 000-0000 (WP) [phone]: 07/29/2017 VICKY BENSONB: Primary VICKY Cedric BENSONB: [place] [id number] Insurance:[id number] [facility] [address] MEDICARE [address] System [place], [facility] [place], Repository [place] [id number]: Effective [place] [id number]: Date:2017-07-29 - (HP)Tel: [phone] (HP) (WP) Name:[id number] O 000-0000 (WP) [address] [address], [place] [address]MH: 07/29/2017 Secondary VICKY PRESSLEY: [place] Insurance:[id number] [facility]/[address] Number: Effective [address], Repository Date:2017-07-29 - [place] [id number]: [id number] Name:CD:[id number] O ()Tel: (527) [address], [place] 000-0000 () [phone]:
== END 2018-05-31 19:47 | disposition home or self-care (01) ==
PROVIDERS: Emergency Provider Emergency Medicine; Family Provider Internal Medicine; PCP Internal Medicine
DX: M79.89 Other specified soft tissue disorders (principal); I89.0 Lymphedema, not elsewhere classified; I25.10 Atherosclerotic heart disease of native coronary artery without angina pectoris; E11.9 Type 2 diabetes mellitus without complications; I10 Essential (primary) hypertension; E78.00 Pure hypercholesterolemia, unspecified; Z86.73 Personal history of transient ischemic attack (TIA), and cerebral infarction without residual deficits; Z95.5 Presence of coronary angioplasty implant and graft
CPT/HCPCS: 73630; 80053; 85025; 93971; 99283; A4216

== ENCOUNTER 2020-04-27 10:12 | Emergency (ER) | payer MEDICARE, OTHER, SELFPAY ==
[2019-04-06 09:39] VITALS: BMI 27.9
[2020-04-27 10:13] VITALS: BP 180/92; PULSE 78; RESP 15; TEMP 35.1; O2SAT 99; BMI 27.7
--- NOTE | 2020-04-27 10:29 | ED.DCSUM_ITS ---
- ER Visit Summary Date of Service: 04/27/20 Chief Complaint: Thrush History of Present Illness: The patient is a 75 M who complains of thrush. He has had this for weeks. He has tried nystatin swish and swallow as well as some type of oral medication. He denies any fever or systemic symptoms. No other c omplaints. Physical Examination: Patient has some white adherent plaques to his tongue and right mouth. Otherwise airway is intact. No other abnormalities. Test Results: None performed Emergency Department Course and Treatment: Patient has refractory thrush. I did prescribe itraconazole, but the pharmacy did not have it. He was switched to voriconazole twice a day and will follow up with his PCP. Treatment Plan: As above Disposition: Discharge Impression: Oral candidiasis This note was generated with [employer] dictation software. It may contain incorrect words, spelling, and punctuation that were not noted in review of the chart prior to signing ED Disposition - Plan for ED Patient: Disposition: Home or Assisted Living Instructions: Oral Thrush Prescriptions: Itraconazole [Sporanox] 200 mg PO DAILY 14 Days #280 ml Transmission Status: Received by [facility] Referrals: Rashard Persaud Chi, MD [COURTESY STAFF PHYSICIAN] -
--- NOTE | 2020-04-27 10:29 | DCINST.ED_ITS ---
ED Disposition - Plan for ED Patient: Instructions: Oral Thrush Prescriptions: Itraconazole [Sporanox] 200 mg PO DAILY 14 Days #280 ml Transmission Status: Pending to [facility] Referrals: Rashard Persaud Chi, MD [COURTESY STAFF PHYSICIAN] -
== END 2020-04-27 10:42 | disposition home or self-care (01) ==
LOC: ED 10:42
PROVIDERS: Emergency Provider Emergency Medicine
DX: B37.0 Candidal stomatitis (principal); I25.10 Atherosclerotic heart disease of native coronary artery without angina pectoris; I10 Essential (primary) hypertension; E78.00 Pure hypercholesterolemia, unspecified; I48.91 Unspecified atrial fibrillation; Z95.5 Presence of coronary angioplasty implant and graft
CPT/HCPCS: 99281

== ENCOUNTER 2020-06-17 23:35 | Emergency (ER) | payer MEDICARE, OTHER, SELFPAY ==
[2020-06-17 23:36] VITALS: PULSE 85; RESP 16; TEMP 35.8; O2SAT 96; BMI 28.6
[2020-06-17 23:37] VITALS: BP 219/123
--- NOTE | 2020-06-17 23:44 | EKG12_ITS ---
Test Reason : HTN Blood Pressure : / mmHG Vent. Rate : 078 BPM Atrial Rate : 078 BPM P-R Int : 176 ms QRS Dur : 096 ms QT Int : 390 ms P-R-T Axes : 061 -06 044 degrees QTc Int : 444 ms Normal sinus rhythm Normal ECG Confirmed by SYEDA GOOD, MARVIN ([id number]), advertising editor SHAINA CAVAZOS ([id number]) on 06/26/2020 10:13:36 AM Referred By: KIMBER Confirmed By:BENJAMÍN LANDA MD
[2020-06-17] MEDS: cloNIDine HCl 0.2 MG Tablet PO (23:56)
[2020-06-17 23:59] LABS: Absolute Lymphocyte Count 1.93 X10^3/uL (0.83-4.51); Absolute Neutrophil Count 4.2 X10^3/uL (2.0-7.7); Basophil# 0.07 X10^3/uL; Eosinophil# 0.08 X10^3/uL; Eosinophils% 1.1 % (0-5); Hematocrit 40.3 % (40-54); Hemoglobin 13.1 g/dL (13.0-16.5); Lymphocyte # 1.93 X10^3/ul (4.0); Lymphocyte % 27.7 % (19-41); Mean Corp Hgb Conc 32.5 g/dL (32-36); Mean Corpuscular Volume 95.5 fL (80-94); Monocyte# 0.66 X10^3/uL; Monocyte% 9.5 % (0-10); NRBC Flagged by Analyzer 0 % (0-5); Neutrophil # 4.22 X10^3/uL (2.7-7.7); Neutrophil % 60.6 % (47-70); Platelet Count 209 K/mm3 (150-450); RBC Distribution Width CV 13.2 % (11.6-14.6); RBC Distribution Width SD 46.3 fl (35.1-43.9); Red Blood Count 4.22 M/mm3 (4.6-6.2)
--- NOTE | 2020-06-18 00:09 | ED.VIS.GEN ---
History of Present Illness Chief Complaint: Hypertension Informant: Patient Onset: Today Context: Gradual Onset Timing: Continuous Current Severity: Mild Maximum Severity: Mild Narrative: The patient presents to the hospital with elevated blood pressure. Patient has a history of hypertension. He states that he is on hydrochlorothiazide and lisinopril. He states yesterday, his blood pressure was in the 140s which is about his baseline. He states he is been under significant amount of stress lately. He states it was blood pressure at home and it was 200 systolic. He denies headache, blurry vision, double vision, or chest pain. He states he has been taking BuSpar to help with anxiety, but does not feel it is helping. 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 He has had no chest pain. He denies orthopnea. Prior similar symptoms: No Recent Illness/Hospitalization: No Past Medical History - Allergies and Home Meds Allergies/Adverse Reactions: Allergies No Known Allergies Allergy (Verified 04/27/20 10:15) Primary Care Physician: Silverio Coleman MD [Primary Care Provider] - Prior records reviewed: Yes Past Medical History: - - Hypertension, hyperlipidemia, prior heart disease Surgical History: no surgical history Smoking Status: Former smoker - Family History Maternal Family History: Family History (Last Reviewed 04/06/19 @ 09:[address] Sriram Rai MD) Father Seizures Epilepsy Family History: Reports: No pertinent history Paternal Family History: Family History (Last Reviewed 04/06/19 @ 09:[address] Sriram Rai MD) Father Seizures Epilepsy Family History: Reports: Seizures Review of Systems General: Denies: Chills, Fever, Sweats Eyes: Denies: Visual changes - bilaterally, Diplopia ENT: Denies: Rhinorrhea, Sore throat Cardiovascular: Denies: Chest pain, Palpitations Respiratory: Denies: Dyspnea, Cough, Dyspnea on exertion Gastrointestinal: Denies: Abdominal pain, Nausea, Vomiting, Diarrhea, Melena, Hematochezia Genitourinary: Denies: Dysuria, Hematuria, Frequency Musculoskeletal: Denies: Back pain, Extremity Pain Skin: Denies: Rash, Wounds Neurological: Denies: Headache, Weakness, Numbness Physical Exam Vital Signs/Narrative: Vital Signs Temp Pulse Resp BP Pulse Ox 06/17/20 23:37 219/123 H 06/17/20 23:36 96.5 F L 85 16 96 Inital Vital Signs reviewed: Yes General: Well nourished, Well developed, No Acute Distress Head: Normocephalic, Atraumatic Eyes: Perrl, EOMI ENT: Moist mucous membranes, No rhinorrhea Neck: Supple, Nontender Cardiovascular: Regular rate, Regular rhythm, No murmurs Respiratory: No distress, CTA bilaterally, Chest nontender Abdomen: Soft, Nontender, Nondistended, Normal bowel sounds Back: Nontender, Normal Inspection Extremities: Nontender, No edema Skin: Normal color, No rash Neurological: Alert, Oriented x3, Cranial nerves II-XII grossly intact, Normal Strength, Normal Sensation Psychological: Normal affect, Normal Mood Diagnostic/Tx/Re-eval Abnormal Lab Results 06/17/20 06/17/20 23:55 23:55 WBC 7.0 RBC 4.22 L Hgb 13.1 Hct 40.3 MCV 95.5 H MCH 31.0 MCHC 32.5 RDW Std Deviation 46.3 H RDW Coeff of Dannie 13.2 Plt Count 209 MPV 10.0 Immature Gran % (Auto) 0.100 Neut % (Auto) 60.6 Lymph % (Auto) 27.7 [place] % (Auto) 9.5 Eos % (Auto) 1.1 Baso % (Auto) 1.0 Absolute Neuts (auto) 4.2 Absolute Lymphs (auto) 1.93 Nucleated RBC % 0 Sodium 139 Potassium 3.9 Chloride 106 Carbon Dioxide 29.0 Anion Gap 4 L BUN 21 H Creatinine 1.36 H Estim Creat Clear Calc 53.85 Est GFR (MDRD) Af Amer 66 Est GFR (MDRD) Non-Af 54 L BUN/Creatinine Ratio 15.4 Glucose 140 H Calcium 8.6 Total Bilirubin 0.20 AST 27 ALT 42 Alkaline Phosphatase 168 H Total Protein 6.8 Albumin 3.6 Globulin 3.2 Albumin/Globulin Ratio 1.1 - Rhythm Strip Rhythm Strip: Sinus Rhythm Rate: 80 Ectopy: None - EKG Initial EKG Interpretation: Sinus Rhythm, No Acute Injury Pattern Prior: Unchanged - Medical Decision Making The patient presents with asymptomatic hypertension. He has had no chest pain, shortness of breath, or other systemic symptoms. He was not hypertensive. He was given clonidine and observe. I did obtain metabolic work-up including EKG. This was unremarkable. Patient states he has been under significant amount of stress with his . I do feel this is likely contributing to his symptoms. He is also been placed on BuSpar and does not seem to be helping him. His blood pressure had slowly trended down to a more acceptable range and he continued to be asymptomatic. I do not feel that titrating his antihypertensives for 1 day of high blood pressure would be appropriate at this time. I am going to give him a short course of Ativan to help with his anxiety. He is comfortable with this plan of care and we discharged home. Impression 1. Hypertension 2. Anxiety ED Disposition - Plan for ED Patient: Disposition: Home or Assisted Living Instructions: ED Hypertension, Established Prescriptions: Lorazepam [Ativan] 0.5 mg PO TID #10 tab Prescription Printed Referrals: Silverio Coleman MD [Primary Care Provider] -
[2020-06-18 00:16] LABS: ALB/GLOB Ratio 1.1 RATIO (0.9-2.4); AST(SGOT) 27 U/L (15-37); Alanine Aminotransfer ALT/SGPT 42 U/L (16-61); Albumin, Serum 3.6 g/dL (3.2-5.0); Alkaline Phosphatase 168 U/L (45-117); Anion Gap 4 (5-15); BUN 21 mg/dL (7-18); BUN/Creat Ratio 15.4 RATIO (10-20); Calcium,Total 8.6 mg/dL (8.5-10.1); Chloride 106 mmol/L (98-107); Creatinine, Serum 1.36 mg/dL (0.70-1.30); EST Glomerular Filtration Rate 54 mL/min (>60); Est Glom Filt Rate - Afr Amer 66 mL/min (>60); Estimated Creatinine Clearance 53.85 ml/min; Globulin 3.2 g/dL (2.2-4.2); Glucose 140 mg/dL (74-106); Potassium 3.9 mmol/L (3.5-5.1); Protein, Total 6.8 g/dL (6.4-8.2); Sodium Level 139 mmol/L (136-145)
[2020-06-18 01:04] VITALS: BP 178/91; PULSE 71; RESP 17
[2020-06-18 01:16] VITALS: BP 178/91; PULSE 72; RESP 18; O2SAT 98
== END 2020-06-18 01:17 | disposition home or self-care (01) ==
LOC: ED 06-18 00:30
PROVIDERS: Emergency Provider Emergency Medicine; PCP Internal Medicine
DX: I10 Essential (primary) hypertension (principal); F41.9 Anxiety disorder, unspecified; E78.5 Hyperlipidemia, unspecified; Z87.891 Personal history of nicotine dependence
CPT/HCPCS: 80053; 85025; 93005; 99284; A4216

== ENCOUNTER → 2020-06-19 17:45 | Outpatient (CLI) | payer MEDICARE, OTHER, SELFPAY ==
[2020-06-17 23:36] VITALS: BMI 28.6
[2020-06-19 18:00] LABS: Absolute Lymphocyte Count 1.85 X10^3/uL (0.83-4.51); Absolute Neutrophil Count 4.2 X10^3/uL (2.0-7.7); Basophil# 0.06 X10^3/uL; Basophil% 0.9 % (0-1); Eosinophil# 0.06 X10^3/uL; Eosinophils% 0.9 % (0-5); Hematocrit 42.9 % (40-54); Hemoglobin 13.9 g/dL (13.0-16.5); Lymphocyte # 1.85 X10^3/ul (4.0); Lymphocyte % 26.5 % (19-41); Mean Corp Hgb Conc 32.4 g/dL (32-36); Mean Corpuscular Volume 95.8 fL (80-94); Mean Platelet Vol. 10.2 fl (6.2-12.0); Monocyte# 0.75 X10^3/uL; Monocyte% 10.8 % (0-10); NRBC Flagged by Analyzer 0 % (0-5); Neutrophil # 4.24 X10^3/uL (2.7-7.7); Neutrophil % 60.8 % (47-70); Platelet Count 222 K/mm3 (150-450); RBC Distribution Width SD 45.8 fl (35.1-43.9); Red Blood Count 4.48 M/mm3 (4.6-6.2)
[2020-06-19 18:55] LABS: ALB/GLOB Ratio 1.2 RATIO (0.9-2.4); AST(SGOT) 27 U/L (15-37); Alanine Aminotransfer ALT/SGPT 44 U/L (16-61); Alkaline Phosphatase 185 U/L (45-117); Anion Gap 4 (5-15); BUN 19 mg/dL (7-18); BUN/Creat Ratio 17.1 RATIO (10-20); Calcium,Total 9.1 mg/dL (8.5-10.1); Chloride 105 mmol/L (98-107); Creatinine, Serum 1.11 mg/dL (0.70-1.30); EST Glomerular Filtration Rate 69 mL/min (>60); Est Glom Filt Rate - Afr Amer 83 mL/min (>60); Globulin 3.4 g/dL (2.2-4.2); Glucose 83 mg/dL (74-106); Potassium 3.6 mmol/L (3.5-5.1); Protein, Total 7.4 g/dL (6.4-8.2); Sodium Level 140 mmol/L (136-145); Thyroid Stim Hormone (TSH) 1.47 uIU/mL (0.358-3.74)
[2020-06-20 11:22] LABS: Hepatitis C Antibody Non-Reactive (Nonreactive)
== END ==
PROVIDERS: PCP Internal Medicine; Visit Provider Family Medicine Geriatric Medicine
DX: E55.9 Vitamin D deficiency, unspecified (principal); I10 Essential (primary) hypertension; Z13.89 Encounter for screening for other disorder
CPT/HCPCS: 36415; 80053; 82306; 84443; 85025; 86803

== ENCOUNTER 2020-06-27 15:07 | Emergency (ER) | payer MEDICARE, OTHER, SELFPAY ==
[2020-06-27 15:07] VITALS: BP 190/106; PULSE 71; RESP 15; TEMP 36; O2SAT 99; BMI 27.2
[2020-06-27 15:22] VITALS: BP 189/79; PULSE 69; RESP 21; O2SAT 98
--- NOTE | 2020-06-27 15:33 | ED.DCSUM_ITS ---
History of Present Illness Chief Complaint: Hypertension Informant: Patient Onset: Today Narrative: Patient presents for evaluation of elevated blood pressure at home today. States this morning systolic 150s went up to 160s and up to 200s. He was seen approximately 10 days ago for similar reporting increasing anxiety and stress from taking care of his significant other who is disabled. He was seen in the ED, there is more concerns of anxiety causing his symptoms medications were not adjusted at that time he was written prescription of Xanax to take as needed however he states he never filled it and threw it away. He states he discussed with his PCP a week ago, his lisinopril hydrochlorothiazide was stopped, he was placed on valsartan with hydrochlorothiazide 25 mg / 12.5 mg. Additional diltiazem of 180 mg twice daily was written for him. He is also on metoprolol 100 mg twice daily for history of paroxysmal atrial fibrillation. He brought in his phone with his blood pressures which has been managed with systolic 140s and 150s. Today he states there was increasing stress with taking care of his significant other. States he had some tightness around his head that resolved. No visual changes. No chest pains or shortness of breath. No nausea or vomiting. Does have cardiac history diabetes states his sugars were normal today. He did call his PCP who told him to take an extra dose of diltiazem for which he took an hour prior to arrival. Prior similar symptoms: Yes Past Medical History - Allergies and Home Meds Allergies/Adverse Reactions: Allergies No Known Allergies Allergy (Verified 06/27/20 15:10) Primary Care Physician: Rashard Persaud Chi, MD [COURTESY STAFF PHYSICIAN] - Past Medical History: - - Hypertension, hyperlipidemia, coronary disease, diabetes Surgical History: no surgical history Smoking Status: Former smoker - Family History Maternal Family History: Family History (Last Reviewed 04/06/19 @ 09:[address] Sriram Rai MD) Father Seizures Epilepsy Family History: Reports: No pertinent history Paternal Family History: Family History (Last Reviewed 04/06/19 @ 09:[address] Sriram Rai MD) Father Seizures Epilepsy Family History: Reports: Seizures Review of Systems General: Denies: Chills, Fever, Sweats Eyes: Denies: Visual changes - bilaterally, Diplopia ENT: Denies: Rhinorrhea, Sore throat Cardiovascular: Denies: Chest pain, Palpitations Respiratory: Denies: Dyspnea, Cough, Dyspnea on exertion Gastrointestinal: Denies: Abdominal pain, Nausea, Vomiting, Diarrhea, Melena, Hematochezia Genitourinary: Denies: Dysuria, Hematuria, Frequency Musculoskeletal: Denies: Back pain, Extremity Pain Skin: Denies: Rash, Wounds Neurological: Denies: Headache, Weakness, Numbness Physical Exam Vital Signs/Narrative: Vital Signs Temp Pulse Resp BP Pulse Ox 06/27/20 15:22 69 21 H 189/79 H 98 06/27/20 15:07 96.8 F L 71 15 190/106 H 99 Inital Vital Signs reviewed: Yes General: Well nourished, Well developed, No Acute Distress Head: Normocephalic, Atraumatic Eyes: Perrl, EOMI ENT: Moist mucous membranes, No rhinorrhea Neck: Supple, Nontender Cardiovascular: Regular rate, Regular rhythm, No murmurs Respiratory: No distress, CTA bilaterally, Chest nontender Abdomen: Soft, Nontender, Nondistended, Normal bowel sounds Back: Nontender, Normal Inspection Extremities: Nontender, No edema Skin: Normal color, No rash Neurological: Alert, Oriented x3, Cranial nerves II-XII grossly intact, Normal Strength, Normal Sensation Psychological: Normal affect, Normal Mood Diagnostic/Tx/Re-eval - Medical Decision Making Patient currently asymptomatic blood pressure on arrival 189/79. He status post his extra dose of Cardizem. He was monitored with down to 170/90. He did have increased stress event today. I agree with his last visit both of stress- induced increasing hypertension. However he got adjusted by his PCP with medications he will continue his current doses and monitor his symptoms. He states he threw away his last prescription never filled it, discussed he like to try it discussed sympathetic stress response with anxiety which can cause sherlyn vated blood pressure. He understands. He is willing to try the prescription to use as needed. This was written and printed out for the patient to use as needed. Signs and symptom discussed return. All questions were answered. Patient is being discharged under pandemic conditions under declared global, national and state disaster activation, with limited medical resources. Patient and community understands this. Results discussed in layman's terms to the patient satisfaction. All questions answered in layman's terms. Patient understands importance of follow-up care as directed. Patient has been instructed to return to the ED immediately if new symptoms, problems, or questions occur. We mutually agree with the plan of disposition. The patient understand that they may call or return with any questions or concerns at any time. ED Disposition - Plan for ED Patient: Disposition: Home or Assisted Living Diagnosis: Elevated blood pressure reading in office with diagnosis of hypertension, Acute stress reaction Instructions: ED Anxiety Reaction, ED Hypertension, Established Prescriptions: Alprazolam [Xanax] 0.25 mg PO BID PRN #20 tab PRN Reason: stress or anxiety Prescription Printed Referrals: Rashard Persaud Chi, MD [COURTESY STAFF PHYSICIAN] - 5-7 Days
[2020-06-27 16:13] VITALS: BP 178/90; PULSE 64; RESP 18; O2SAT 99
== END 2020-06-27 16:14 | disposition home or self-care (01) ==
PROVIDERS: Emergency Provider Emergency Medicine; PCP Internal Medicine
DX: I10 Essential (primary) hypertension (principal); F43.0 Acute stress reaction; E78.5 Hyperlipidemia, unspecified; E11.9 Type 2 diabetes mellitus without complications; Z87.891 Personal history of nicotine dependence; Z79.899 Other long term (current) drug therapy; I48.0 Paroxysmal atrial fibrillation
CPT/HCPCS: 99282

== ENCOUNTER → 2020-07-17 10:21 | Outpatient (CLI) | payer MEDICARE, OTHER, SELFPAY ==
[2020-07-09 09:59] VITALS: BMI 27.3
--- NOTE | 2020-07-17 10:25 | ECHOD_ITS ---
Reason For Study: HTN Procedure This was a 2D Doppler, Color Flow transthoracic echocardiogram. Exam performed in department. Left Ventricle Normal LV size. Left ventricular systolic function is normal. The estimated ejection fraction is 60 %. No regional wall motion abnormalities noted. Right Ventricle Normal RV size. Normal systolic function. Atria The left atrium is mildly enlarged. Normal right atrium. Mitral Valve Normal mitral valve. Mild (1+) eccentric mitral valve insufficiency. Tricuspid Valve Normal tricuspid valve. Mild tricuspid valve insufficiency. Pulmonary artery systolic pressure is 36 mmHg. Aortic Valve Normal aortic valve. Trisinus/trileaflet aortic valve. Pulmonic Valve Normal pulmonic valve. Great Vessels Normal aortic root. The pulmonary artery is normal size. Normal inferior vena cava. Pericardium/Pleural No pericardial effusion. MMode/2D Measurements & Calculations LVIDd: 4.7 cm IVSd: 1.3 cm Ao root diam: 2.9 cm LVIDs: 3.3 cm LVPWd: 1.1 cm LA dimension: 4.4 cm RVDd: 3.6 cm FS: 28.7 % LAV(MOD-bp): 87.3 ml LA A4 area: 25.4 cm2 RA A4 area: 16.1 cm2 LAV(MOD-bp) Indexed: 39.1 ml/m2 LAV(MOD-sp2): 81.6 ml LAV(MOD-sp4): 85.9 ml Time Measurements MV dec time: 0.25 sec Doppler Measurements & Calculations MV E max boni: 75.7 cm/sec Lat Peak E' Boni: 9.4 cm/sec Med Peak E' Boni: 6.4 cm/sec MV A max boni: 66.0 cm/sec E/E' lat: 8.0 E/E' med: 11.8 MV E/A: 1.1 MV V2 max: 82.4 cm/sec MV P1/2t max boni: 82.8 cm/sec Ao V2 max: 120.2 cm/sec MV max P.7 mmHg MV P1/2t: 67.5 msec Ao max P.8 mmHg MV V2 mean: 47.3 cm/sec MV dec slope: 359.5 cm/sec2 MV mean P.1 mmHg MVA(P1/2t): 3.3 cm2 MV V2 VTI: 24.1 cm LV V1 max: 78.0 cm/sec PA V2 max: 105.9 cm/sec TR max boni: 282.7 cm/sec LV V1 max P.4 mmHg TR max P.0 mmHg Interpretation Summary Normal LV size. Left ventricular systolic function is normal. The estimated ejection fraction is 60 %. Mild (1+) eccentric mitral valve insufficiency. Mild tricuspid valve insufficiency. The left atrium is mildly enlarged. Ordering Physician: Sriram Rai Referring Physician: Rashard Persaud Chi Performed By: Tunde Mancuso RCS
== END ==
PROVIDERS: PCP Family Medicine Geriatric Medicine; Referring Provider Internal Medicine Cardiovascular Disease; Visit Provider Internal Medicine Cardiovascular Disease
DX: I10 Essential (primary) hypertension (principal); I25.2 Old myocardial infarction
CPT/HCPCS: 93306

== ENCOUNTER → 2020-09-12 13:37 | Outpatient (CLI) | payer MEDICARE, OTHER, SELFPAY ==
[2020-07-09 09:59] VITALS: BMI 27.3
[2020-09-12 17:09] LABS: Absolute Lymphocyte Count 1.33 X10^3/uL (0.83-4.51); Absolute Neutrophil Count 3.3 X10^3/uL (2.0-7.7); Basophil# 0.07 X10^3/uL; Basophil% 1.3 % (0-1); Eosinophil# 0.06 X10^3/uL; Eosinophils% 1.1 % (0-5); Hematocrit 39.3 % (40-54); Hemoglobin 12.5 g/dL (13.0-16.5); Lymphocyte # 1.33 X10^3/ul (4.0); Lymphocyte % 25.1 % (19-41); Mean Corp Hgb Conc 31.8 g/dL (32-36); Mean Corpuscular Hgb 31.2 pg (27.0-32.0); Mean Platelet Vol. 10.5 fl (6.2-12.0); Monocyte# 0.55 X10^3/uL; Monocyte% 10.4 % (0-10); NRBC Flagged by Analyzer 0 % (0-5); Neutrophil # 3.28 X10^3/uL (2.7-7.7); Neutrophil % 61.9 % (47-70); Platelet Count 217 K/mm3 (150-450); RBC Distribution Width CV 13.1 % (11.6-14.6); RBC Distribution Width SD 46.6 fl (35.1-43.9); Red Blood Count 4.01 M/mm3 (4.6-6.2); White Blood Count 5.3 K/mm3 (4.4-11.0)
[2020-09-12 17:29] LABS: Vitamin D,25 Hydroxy 24.3 ng/mL
[2020-09-12 17:40] LABS: ALB/GLOB Ratio 1.3 RATIO (0.9-2.4); AST(SGOT) 26 U/L (15-37); Alanine Aminotransfer ALT/SGPT 51 U/L (16-61); Albumin, Serum 3.7 g/dL (3.2-5.0); Alkaline Phosphatase 146 U/L (45-117); Anion Gap 2 (5-15); BUN 24 mg/dL (7-18); BUN/Creat Ratio 20.3 RATIO (10-20); Calcium,Total 8.9 mg/dL (8.5-10.1); Chloride 101 mmol/L (98-107); Creatinine, Serum 1.18 mg/dL (0.70-1.30); EST Glomerular Filtration Rate 64 mL/min (>60); Est Glom Filt Rate - Afr Amer 78 mL/min (>60); Globulin 2.9 g/dL (2.2-4.2); Glucose 97 mg/dL (74-106); Potassium 4.4 mmol/L (3.5-5.1); Protein, Total 6.6 g/dL (6.4-8.2); Sodium Level 137 mmol/L (136-145); Thyroid Stim Hormone (TSH) 1.46 uIU/mL (0.358-3.74)
== END ==
PROVIDERS: PCP Family Medicine Geriatric Medicine; Visit Provider Family Medicine Geriatric Medicine
DX: E11.9 Type 2 diabetes mellitus without complications (principal); I10 Essential (primary) hypertension; E55.9 Vitamin D deficiency, unspecified
CPT/HCPCS: 36415; 80053; 82306; 84443; 85025

== ENCOUNTER → 2021-01-21 11:05 | Outpatient (CLI) | payer MEDICARE, OTHER, SELFPAY ==
[2020-07-09 09:59] VITALS: BMI 27.3
== END ==
PROVIDERS: PCP Family Medicine Geriatric Medicine; Visit Provider Family Medicine Geriatric Medicine
DX: N39.0 Urinary tract infection, site not specified (principal)
CPT/HCPCS: 87086; 87088

== ENCOUNTER 2021-02-09 12:31 | Emergency (ER) | payer MEDICARE, OTHER, SELFPAY ==
[2020-07-09 09:59] VITALS: BMI 27.3
[2021-02-09 12:32] VITALS: BP 165/73; PULSE 73; RESP 16; TEMP 36.9; O2SAT 97; BMI 28.1
--- NOTE | 2021-02-09 12:48 | EDS_ITS ---
HPI History of Present Illness Chief Complaint: Bite Narrative Narrative: Patient presenting with pruritic rash on the left index finger. On the medial aspect there is some small vesicles. Patient states this started yesterday. He has noticed some edema in the left index finger as well. No trauma. Patient states that he was hanging lighting outside along his fence line where he had previously had poison reena. This had been killed a couple of years ago however there is some residual poison reena on the fence prior. He thinks he may have come into contact with this. He states that his rash is pruritic in nature. He has history of poison reena dermatitis which seems similar. Patient denies any bites or stings. [facility] Medical History Atherosclerosis of coronary artery of [place] heart with angina pectoris CVA (cerebral vascular accident) (07/19/14) Essential (primary) hypertension History of non-ST elevation myocardial infarction (NSTEMI) (07/20/12) Hyperlipidemia Paroxysmal atrial fibrillation Type 2 diabetes mellitus Home Medications aspirin 81 mg PO DAILY@0800 05/14/13 [History Last Taken 05/14/13 07:00] nitroglycerin 0.4 mg SUBLINGUAL Q5M PRN 05/14/13 [History Last Taken Unknown] atorvastatin 80 mg tablet 80 mg PO QHS tab 04/13/18 [History Last Taken Unknown] insulin lispro 100 unit/mL subcutaneous solution See Rx Instructions [place] USEASDIRECTD 04/06/19 [History Last Taken Unknown] valsartan-hydrochlorothiazide 1 ea PO BID 06/27/20 [History Last Taken Unknown] metoprolol tartrate 100 mg tablet 100 mg PO BID tab 07/09/20 [History Last Taken Unknown] primidone 250 mg tablet 250 mg PO QHS tab 07/09/20 [History Last Taken Unknown] amlodipine 10 mg tablet 10 mg PO .noon #90 tab 07/15/20 [Rx Last Taken Unknown] doxazosin 4 mg tablet 4 mg PO QHS #30 tab 07/15/20 [Rx Last Taken Unknown] prednisone 10 mg PO DAILY #33 tab 02/09/21 [Rx Last Taken Unknown] Allergy/AdvReac Type Severity Reaction Status Date / Time gabapentin AdvReac Other Verified 02/09/21 12:34 Sulfa (Sulfonamide AdvReac PT UNSURE Verified 02/09/21 12:34 Antibiotics) OF REACTION Family History Father Seizures Epilepsy Surgical History History of coronary artery stent placement (07/20/12) Social History Smoking Status: Former smoker how long ago did patient quit smokin years ago alcohol intake: current alcohol intake frequency: holidays/special occasions only substance use type: does not use caffeine: Yes Type: coffee Number of servings: 2 ROS ROS ED Constitutional Constitutional ED: Denies chills, fever(s) or sweats Eyes Eyes: Denies blurry vision or change in vision ENT ENT ED: Denies ear pain or sore throat Cardiovascular Cardiovascular: Denies chest pain, palpitations or racing heartbeat Respiratory/Chest Respiratory/Chest: Denies cough, dyspnea or sputum Gastrointestinal Gastrointestinal: Denies abdominal pain, constipation, diarrhea, nausea or vomiting Genitourinary Genitourinary ED: Denies dysuria, hematuria or urinary frequency Musculoskeletal Musculoskeletal: Denies arthralgias, myalgias or neck pain Integumentary Reports rash; Denies abscess or Abrasions Neurologic Neurologic: Denies headache(s), paresthesias or weakness Psychiatric Psychiatric: Denies anxiety, depression, suicidal ideation or suicidal thoughts Endocrine Endocrinology: Denies polydipsia or polyuria EXAM Physical Exam Const Vital Signs: 02/09/21 12:32 Temperature 98.5 F Temperature Source Temporal Pulse Rate 73 Respiratory Rate 16 Blood Pressure 165/73 H Blood Pressure Mean 103 Pulse Ox 97 Oxygen Delivery Method Room Air Positive well nourished General Appearance ED: NAD HEENT Reports normocephalic and head/scalp atraumatic atraumatic Eyes PERRL and EOMs intact bilaterally Extremity Extremity Narrative: Erythema, vesicular rash, swelling of the left index finger especially on the medial aspect of the index finger. There are no cellulitic changes. No bony tenderness. Left hand is neurovascular intact brisk cap refill to all 5 fingers Neuro oriented x3 Sensorium / Orientation: alert Psych mental status grossly normal and thought process normal Skin Skin Narrative: Rash as described above. MDM MDM MDM Narrative Medical decision making narrative: Patient's symptoms and presentation consistent with poison reena dermatitis. Patient does have an insulin pump and states that he can take steroids and can adjust his insulin as needed. Patient has history of poison reena dermatitis and states this will not be a problem. Patient will be started on next prednisone taper. He is counseled to monitor his blood sugars frequently again he has an automatic pump and sensor. If he has any issues with hyperglycemia he is counseled he can return to the ER at any time. He is also counseled if he notices signs of increased erythema or swelling consistent with infection he should return to the ER. Patient counseled to keep his hand elevated. He can use Benadryl for itching as well as calamine lotion. Impression: #1. Poison reena dermatitis Discharge Plan Triage Chief Complaint: Bite ED Provider: Toby Amador Dx/Rx/DC Orders Instructions: ED Poison Reena Rash Prescriptions: New prednisone 10 mg tablet 10 mg PO DAILY Qty: 33 RF: 0 No Action atorvastatin 80 mg tablet 80 mg PO QHS RF: 0 insulin lispro 100 unit/mL solution See Rx Instructions [place] USEASDIRECTD RF: 0 metoprolol tartrate 100 mg tablet 100 mg PO BID RF: 0 primidone 250 mg tablet 250 mg PO QHS RF: 0 nitroglycerin 0.4 MG tablet 0.4 mg SUBLINGUAL Q5M PRN (Reason: Chest Pain) RF: 0 aspirin 81 MG tablet,chewable 81 mg PO DAILY@0800 RF: 0 valsartan-hydrochlorothiazide 1 EACH tablet 1 ea PO BID RF: 0 doxazosin [Cardura] 4 mg tablet 4 mg PO QHS Qty: 30 RF: 2 amlodipine 10 mg tablet 10 mg PO .noon Qty: 90 RF: 3 Primary Care Provider: Rashard Persaud Chi Referrals: Rashard Persaud Chi, MD [Primary Care Provider] -
[2021-02-09] MEDS: predniSONE 20 MG Tablet 60 MG PO (13:00)
== END 2021-02-09 13:07 ==
LOC: ED 12:56
PROVIDERS: Emergency Provider Student in an Organized Health Care Education/Training Program; PCP Family Medicine Geriatric Medicine
DX: L23.7 Allergic contact dermatitis due to plants, except food (principal); E11.9 Type 2 diabetes mellitus without complications; E78.5 Hyperlipidemia, unspecified; I10 Essential (primary) hypertension; I25.10 Atherosclerotic heart disease of native coronary artery without angina pectoris; I25.2 Old myocardial infarction; I48.0 Paroxysmal atrial fibrillation; Z79.4 Long term (current) use of insulin; Z79.52 Long term (current) use of systemic steroids; Z79.82 Long term (current) use of aspirin; Z79.899 Other long term (current) drug therapy; Z87.891 Personal history of nicotine dependence
CPT/HCPCS: 99283

== ENCOUNTER 2021-07-29 15:35 | Outpatient (CLI) | payer MEDICARE, OTHER, SELFPAY ==
[2021-07-29 17:08] LABS: Absolute Neutrophil Count 4.5 X10^3/uL (2.0-7.7); Basophil# 0.04 X10^3/uL; Basophil% 0.7 % (0-1); Eosinophil# 0.08 X10^3/uL; Eosinophils% 1.3 % (0-5); Hematocrit 40.6 % (40-54); Hemoglobin 12.8 g/dL (13.0-16.5); Lymphocyte % 16.7 % (19-41); Mean Corp Hgb Conc 31.5 g/dL (32-36); Mean Corpuscular Volume 95.3 fL (80-94); Mean Platelet Vol. 10.6 fl (6.2-12.0); Monocyte# 0.36 X10^3/uL; NRBC Flagged by Analyzer 0 % (0-5); Platelet Count 257 K/mm3 (150-450); RBC Distribution Width SD 44.8 fl (35.1-43.9); Red Blood Count 4.26 M/mm3 (4.6-6.2)
[2021-07-29 17:25] LABS: Vitamin D,25 Hydroxy 38.2 ng/mL
[2021-07-29 17:31] LABS: ALB/GLOB Ratio 0.9 RATIO (0.9-2.4); AST(SGOT) 47 U/L (15-37); Alanine Aminotransfer ALT/SGPT 55 U/L (16-61); Albumin, Serum 3.1 g/dL (3.2-5.0); Alkaline Phosphatase 162 U/L (45-117); Anion Gap 5 (5-15); BUN 11 mg/dL (7-18); Calcium,Total 8.5 mg/dL (8.5-10.1); Chloride 100 mmol/L (98-107); EST Glomerular Filtration Rate 69 mL/min (>60); Est Glom Filt Rate - Afr Amer 84 mL/min (>60); Globulin 3.3 g/dL (2.2-4.2); Glucose 224 mg/dL (74-106); Potassium 3.9 mmol/L (3.5-5.1); Protein, Total 6.4 g/dL (6.4-8.2); Sodium Level 137 mmol/L (136-145); Thyroid Stim Hormone (TSH) 1.47 uIU/mL (0.358-3.74)
== END 2021-07-29 23:59 | disposition short-term general hospital (02) ==
LOC: POLAB3 15:37
PROVIDERS: PCP Family Medicine Geriatric Medicine; Visit Provider Family Medicine Geriatric Medicine
DX: E11.9 Type 2 diabetes mellitus without complications (principal); E55.9 Vitamin D deficiency, unspecified; I10 Essential (primary) hypertension
CPT/HCPCS: 36415; 80053; 82306; 84443; 85025

== ENCOUNTER → 2022-03-10 | Outpatient (CLI) | payer MEDICARE, OTHER, SELFPAY ==
--- NOTE | 2022-03-10 13:31 | VDLE_ITS ---
Reason For Study: LLE Pain and swelling RIGHT LEFT CFV is compressible, spontaneous, phasic, GSV is normal. competent and demonstrates normal CFV is compressible, spontaneous, phasic, augmentation. competent, and demonstrates normal Procedure augmentation. This is a venous duplex using B-mode, color FV is compressible, spontaneous, phasic, flow and spectral Doppler. competent and demonstrates normal Exam performed in department. augmentation. A preliminary report was called and/or faxed POP V is compressible, spontaneous, phasic, to Joanna. competent and demonstrates normal augmentation. T/P Trunk is compressible. PTV is compressible. LT PerV is compressible. VL/Venous Duplex US, Unilateral Interpretation Summary Deep veins of the left lower extremity are patent and compressible segmentally. There is no evidence of left lower extremity deep vein thrombosis. The left great saphenous vein yuly ears patent and compressible segmentally. Ordering Physician: Ghislaine Marshall Referring Physician: Rashard Persaud Chi Performed By: Gabriella Rocha RVT
--- NOTE | 2022-03-10 13:57 | RAD_ITS ---
STUDY: X-RAY - LEFT FOOT CLINICAL: Pain and swelling beginning 4 days ago radiating into lower leg. TECHNIQUE: 3 view(s) of the foot. COMPARISON: None. FINDINGS: There is a sclerotic band of signal in the distal talus suggestive of stress fracture. There is a small cortical fracture of the lateral aspect of the distal calcaneus on the AP view. There are very small posterior and plantar calcaneal enthesophytes. Normal visualized subtalar, talonavicular, calcaneocuboid, tarsal and tarsometatarsal articulations. There is chronic healed fracture deformity with prominent callus of the second metatarsal diaphysis. Normal metatarsophalangeal joint of the great toe. Normal tibial and fibular sesamoid bones. Normal interphalangeal joint of the great toe. Normal phalanges of the great toe. Normal second through fifth metatarsophalangeal joints. Normal interphalangeal joints and phalanges of the lesser toes. There is mild vascular calcification. RAD/Foot min 3 Views IMPRESSION: Sclerotic band of signal in the distal talus suggestive of stress fracture Small cortical fracture of the lateral aspect of the distal calcaneus. Chronic healed fracture deformity of the second metatarsal. Electronically Signed: Deuce Perea MD at 14:51 EDT ,
== END | disposition home or self-care (01) ==
PROVIDERS: PCP Family Medicine Geriatric Medicine; Referring Provider Podiatrist; Visit Provider Podiatrist
DX: M79.605 Pain in left leg (principal); R60.0 Localized edema
CPT/HCPCS: 73630; 93971

== ENCOUNTER → 2022-08-06 | Outpatient (CLI) | payer MEDICARE, OTHER, SELFPAY ==
[2022-08-06 12:47] LABS: Absolute Neutrophil Count 3.4 X10^3/uL (2.0-7.7); Basophil# 0.09 X10^3/uL; Basophil% 1.8 % (0-1); Eosinophil# 0.17 X10^3/uL; Eosinophils% 3.3 % (0-5); Hematocrit 38.1 % (40-54); Lymphocyte % 19.6 % (19-41); Mean Corp Hgb Conc 31.5 g/dL (32-36); Mean Corpuscular Hgb 30.3 pg (27.0-32.0); Mean Corpuscular Volume 96.2 fL (80-94); Mean Platelet Vol. 10.4 fl (6.2-12.0); Monocyte# 0.45 X10^3/uL; Monocyte% 8.8 % (0-10); NRBC Flagged by Analyzer 0 % (0-5); Neutrophil # 3.38 X10^3/uL (2.7-7.7); Neutrophil % 66.3 % (47-70); Platelet Count 200 K/mm3 (150-450); RBC Distribution Width CV 13.2 % (11.6-14.6); RBC Distribution Width SD 46.7 fl (35.1-43.9); Red Blood Count 3.96 M/mm3 (4.6-6.2); White Blood Count 5.1 K/mm3 (4.4-11.0)
[2022-08-06 13:51] LABS: AST(SGOT) 23 U/L (15-37); Alanine Aminotransfer ALT/SGPT 27 U/L (16-61); Albumin, Serum 3.3 g/dL (3.2-5.0); Alkaline Phosphatase 185 U/L (45-117); Anion Gap 5 (5-15); BUN 15 mg/dL (7-18); Calcium,Total 8.2 mg/dL (8.5-10.1); Chloride 100 mmol/L (98-107); Creatinine, Serum 1.15 mg/dL (0.70-1.30); EST Glomerular Filtration Rate 66 mL/min (>60); Est Glom Filt Rate - Afr Amer 79 mL/min (>60); Globulin 3.3 g/dL (2.2-4.2); Glucose 345 mg/dL (74-106); Potassium 4.1 mmol/L (3.5-5.1); Protein, Total 6.6 g/dL (6.4-8.2); Sodium Level 136 mmol/L (136-145); Thyroid Stim Hormone (TSH) 2.92 uIU/mL (0.358-3.74)
== END | disposition home or self-care (01) ==
LOC: POLAB3 10:55
PROVIDERS: PCP Family Medicine Geriatric Medicine; Visit Provider Family Medicine Geriatric Medicine
DX: E11.9 Type 2 diabetes mellitus without complications (principal); I10 Essential (primary) hypertension; E55.9 Vitamin D deficiency, unspecified
CPT/HCPCS: 36415; 80053; 82306; 84443; 85025